=== PATIENT | female | born 1945 | race Caucasian/White ===

== ENCOUNTER 2023-01-17 14:52 | Outpatient (OUT) | payer MEDICARE, SELFPAY ==
--- NOTE | 2023-01-17 15:29 | MM_ITS ---
Patient: CHRISS BELL Exam Date: 01/17/2023 : 1945 Gender:F Ordering : DR Miguelina Whitfield M.D. Admission #: [id number] Family : Order #: [id number] CLICK HERE TO VIEW EXAM RADIOLOGY REPORT PROCEDURE: MM TOMOSYNTHESIS SCREENING BI COMPARISON: MG MAMM SCREEN 3D PARKER CAD, 11/22/2020. MG MAMM SCREEN 3D PARKER CAD, 01/15/2022. INDICATIONS: Screening mammogram Z12.31 Calculator Name NCI Breast Cancer Risk Assessment Tool 5 Year Breast Cancer Risk 1.30% Lifetime Breast Cancer Risk 2.60% Personal Breast Cancer No Personal Ovarian Cancer No Treatments None Family Cancers Daughter with thyroid cancer at age 22; Brother with colon cancer at age 60. LOCATION: [facility] BREAST COMPOSITION: Heterogeneously dense,which may obscure small masses. FINDINGS: DIAGNOSTIC CATEGORY 1--NEGATIVE. NO CHANGE FROM COMPARISON ASSESSMENT. Scattered benign-appearing calcifications are present. Scattered benign-appearing lymph nodes are present. RIGHT BREAST: No significant suspicious finding. LEFT BREAST: No significant suspicious finding. RECOMMENDATIONS: ROUTINE MAMMOGRAM AND CLINICAL EVALUATION IN 12 MONTHS. PLEASE NOTE: A NORMAL MAMMOGRAM DOES NOT EXCLUDE THE POSSIBILITY OF BREAST CANCER. A CLINICALLY SUSPICIOUS PALPABLE LUMP SHOULD BE BIOPSIED. Dictated by: Sd Hernandez MD on 01/18/2023 at 08:56 Approved by: Sd Hernandez MD on 01/18/2023 at 08:58
== END 2023-01-17 14:53 | disposition home or self-care (01) ==
LOC: MAMMO 14:58
PROVIDERS: PCP Family Medicine; Visit Provider Family Medicine
DX: Z12.31 Encounter for screening mammogram for malignant neoplasm of breast (principal); Z80.0 Family history of malignant neoplasm of digestive organs; Z80.8 Family history of malignant neoplasm of other organs or systems
CPT/HCPCS: 77063; 77067

== ENCOUNTER 2023-04-10 13:50 | Outpatient (OUT) | payer MEDICARE, SELFPAY ==
[2023-04-10 14:22] LABS: Anion Gap 15.1; BUN Creatinine Ratio 22.7; Calcium 8.8 mg/dL (8.5-10.1); Carbon Dioxide 26.6 mmol/L (21.0-32.0); Chloride 99 mmol/L (98-107); Estimated GFR (African America >60 (>=60); Estimated GFR (Non-African Ame >60 (>=60); Glucose 110 mg/dL (74-106); Potassium 3.7 mmol/L (3.5-5.1); Sodium 137 mmol/L (136-145)
[2023-04-10 14:40] LABS: Estimated Average Glucose 126 mg/dL
== END 2023-04-10 13:51 | disposition home or self-care (01) ==
LOC: LAB 13:51
PROVIDERS: PCP Family Medicine; Visit Provider Family Medicine
DX: R73.09 Other abnormal glucose (principal); E87.1 Hypo-osmolality and hyponatremia
CPT/HCPCS: 36415; 80048; 83036

== ENCOUNTER 2023-10-15 15:59 | Outpatient (OUT) | payer MEDICARE, SELFPAY ==
[2023-10-15 16:31] LABS: Basophils Absolute Auto 0.1 10^3/uL (0.0-0.1); Basophils Percent Auto 0.7 % (0.2-2.0); Eosinophils Absolute Auto 0.3 10^3/uL (0.0-0.7); Eosinophils Percent Auto 4.3 % (0.9-7.0); Hematocrit 36.3 % (36.0-48.0); Hemoglobin 12.1 g/dL (12.0-16.0); Immature Granulocytes Abs Auto 0.02 10^3/uL (0.00-0.03); Immature Granulocytes Pct Auto 0.3 % (0.0-0.5); Lymphocytes Absolute Auto 2.3 10^3/uL (1.2-3.8); Lymphocytes Percent Auto 33.6 % (20.5-60.0); Mean Corpuscular HGB Conc 33.3 g/dL (29.9-35.2); Mean Corpuscular Hemoglobin 29.9 pg (26.7-34.0); Mean Corpuscular Volume 89.6 fL (81.0-99.0); Mean Platelet Volume 10.6 fL (9.5-13.5); Monocytes Absolute Auto 0.7 10^3/uL (0.3-0.8); Monocytes Percent Auto 9.9 % (1.7-12.0); Neutrophils Absolute Auto 3.6 10^3/uL (1.4-6.5); Neutrophils Percent Auto 51.2 % (43.0-75.0); Platelet Count 272 10^3/uL (150-450); Red Blood Count 4.05 10^6/uL (4.20-5.40); Red Cell Distribution Width 13.6 % (11.0-15.0)
[2023-10-15 16:53] LABS: Estimated Average Glucose 131 mg/dL; Glycohemoglobin A1C 6.2 % (4.5-6.2)
[2023-10-15 17:30] LABS: Anion Gap 9.6; BUN Creatinine Ratio 17.1; Calcium 9.3 mg/dL (8.5-10.1); Chloride 95 mmol/L (98-107); Estimated GFR (African America >60 (>=60); Estimated GFR (Non-African Ame >60 (>=60); Glucose 84 mg/dL (74-106); Potassium 3.6 mmol/L (3.5-5.1); Sodium 130 mmol/L (136-145); TSH W/ REFLEX FT4 0.389 uIU/mL (0.358-3.740)
== END 2023-10-15 16:00 | disposition home or self-care (01) ==
LOC: LAB 16:00
PROVIDERS: PCP Family Medicine; Visit Provider Family Medicine
DX: R73.09 Other abnormal glucose (principal); I10 Essential (primary) hypertension; R53.83 Other fatigue; E55.9 Vitamin D deficiency, unspecified
CPT/HCPCS: 36415; 80048; 82306; 83036; 84443; 85025

== ENCOUNTER 2023-12-26 15:19 | Outpatient (OUT) | payer MEDICARE, SELFPAY ==
[2023-12-26 16:19] LABS: Anion Gap 12.3; BUN Creatinine Ratio 25.7; Calcium 9.5 mg/dL (8.5-10.1); Carbon Dioxide 27.6 mmol/L (21.0-32.0); Chloride 98 mmol/L (98-107); Estimated GFR (African America >60 (>=60); Estimated GFR (Non-African Ame >60 (>=60); Glucose 98 mg/dL (74-106); Potassium 3.9 mmol/L (3.5-5.1); Sodium 134 mmol/L (136-145)
== END 2023-12-26 15:20 | disposition home or self-care (01) ==
LOC: LAB 15:20
PROVIDERS: PCP Family Medicine; Visit Provider Family Medicine
DX: E87.1 Hypo-osmolality and hyponatremia (principal)
CPT/HCPCS: 36415; 80048

== ENCOUNTER 2024-01-21 13:43 | Outpatient (OUT) | payer MEDICARE, SELFPAY ==
--- NOTE | 2024-01-21 13:45 | MM_ITS ---
Patient Name: CHRISS BELL MR#: [id number] : 1945 Exam Date: 01/21/2024 Ordering Doctor: DR Miguelina Whitfield M.D. RADIOLOGY REPORT PROCEDURE: MM TOMOSYNTHESIS SCREENING BI COMPARISON: MM TOMOSYNTHESIS SCREENING BI, 01/17/2023. MG MAMM SCREEN 3D PARKER CAD, 01/15/2022. INDICATIONS: Screening Calculator Name NCI Breast Cancer Risk Assessment Tool 5 Year Breast Cancer Risk 1.30% Lifetime Breast Cancer Risk 2.40% Personal Breast Cancer No Personal Ovarian Cancer No Treatments None Family Cancers Daughter with thyroid cancer at age 22; Brother with colon cancer at age 60. LOCATION: [facility] BREAST COMPOSITION: The breasts are heterogeneously dense,which may obscure small masses. FINDINGS: DIAGNOSTIC CATEGORY 2--BENIGN FINDING. NO CHANGE FROM COMPARISON. Scattered benign-appearing nodules are present. Scattered benign-appearing calcifications are present. Scattered benign-appearing lymph nodes are present. RIGHT BREAST: No significant suspicious finding. LEFT BREAST: No significant suspicious finding. RECOMMENDATIONS: ROUTINE MAMMOGRAM AND CLINICAL EVALUATION IN 12 MONTHS. PLEASE NOTE: A NORMAL MAMMOGRAM DOES NOT EXCLUDE THE POSSIBILITY OF BREAST CANCER. A CLINICALLY SUSPICIOUS PALPABLE LUMP SHOULD BE BIOPSIED. Dictated by: Sd Hernandez MD on 01/21/2024 at 14:59 Approved by: Sd Hernandez MD on 01/21/2024 at 15:00
--- OUTSIDE RECORDS SUMMARY | 2024-01-21 14:01 | XMS_ITS | CCD ---
Author Organization [facility] Care Team Providers Care Rental Sales Representative Name Role Phone Diane Angelo MD Primary Care Provider [phone] DEMIAN CARDOZA Attending Unavailable DIAEN ANGELO Primary Care Unavailable Diane Angelo Unavailable Unavailable Unavailable DR DIANE ANGELO Primary Care Unavailable FAWASHOK, SHAIKH Willard Admitting Unavailable FASHAIKH Willard MORROW Attending Unavailable FAWSHAIKH Willard PULIDO Consulting Unavailable ANGELO, DR DIANE Akers Admitting Unavailable ANGELO, DR DIANE Akers Attending Unavailable ANGELO, DR DIANE Akers Primary Care Unavailable TEO, DR JOSÉ MIGUEL Mitchell Consulting Unavailable ANGELO, DR DIANE Akers Consulting Unavailable ANGELO, DR DIANE Akers Admitting Unavailable ANGELO, DR DIANE Akers Attending Unavailable ANGELO, DR DIANE Akers Consulting Unavailable ANGELO, DR DIANE Akers Primary Care Unavailable MURTAZA MILLER Consulting Unavailable ANGELO, DR DIANE Akers Admitting Unavailable ANGELO, DR DIANE Akers Primary Care Unavailable ZIJENNIFER, DR JOSÉ MIGUEL Mitchell Consulting Unavailable ANGELO, DR DIANE Akers Attending Unavailable ANGELO, DR DIANE Akers Consulting Unavailable BYRD, DR ALEXANDER Roldan Attending Unavailable BYRD, DR ALEXANDER Roldan Admitting Unavailable ANGELO, DR DIANE Akers Primary Care Unavailable REQUEST, DR CROWE LISTED Admitting Unavaila ble ANGELO, DR DIANE Akers Primary Care Unavailable REQUEST, DR CROWE LISTED Attending Unavaila ble REQUEST, DR CROWE LISTED Consulting Unavaila Diane Mcqueen Unavailable Grzegorz JEROME, Harjit Williamson Attending Unavailable Nahid JEROME, Diane Sterling Primary Care Millava ilTray Kay DO Attending Unavaila mya Angelo MD, Diane Sterling Primary Care Millava ilghulam Angelo MD, Diane Sterling Referring Unava ilBishnu Johnson MD Attending Unavailable Nahid JEROME, Diane Sterling Primary Care Unava ilable Allergies Allergy Classification Reported Allergen(s) Allergy Type Date of Onset Reaction(s) Facility Angiotensin Converting Enzyme (DANNY) Inhibitors (1 source) Lisinopril Drug Allergy 10-15-19 [facility] Dihydrofolate Reductase Inhibitors (antibiotic) (1 source) Trimethoprim Drug Allergy 10-15-19 [facility] Macrolides (antibiotic) (1 source) Azithromycin Drug Allergy 10-15-19 [facility] Sulfonamides (antibiotic) (2 sources) Sulfonamides (Antibiotic) Drug Allergy 10-15-19 Unknown Reaction, [facility] (1 source) Sulfonamides (Antibiotic) Propensity to adverse reactions to drug 03-13-20 [facility] (9 sources) Sulfonamides (Antibiotic); Translations: [Sulfa Drugs] Allergy to drug (finding) [facility] Repository (2 sources) Sulfonamides (Antibiotic) Drug allergy (disorder) 10-06-19 14 [facility] Repository (13 sources) Azithromycin; Translations: [azithromycin] Drug Allergy 12-26-19 Unknown, [facility] Repository (13 sources) Lisinopril; Translations: [lisinopril] Drug Allergy 12-26-19 Unknown, [facility] Repository (11 sources) Sulfamethoxazole / Trimethoprim Drug Allergy Unknown [facility] Other (11 sources) Substance with sulfonamide structure and antibacterial mechanism of action (substance) Drug allergy Unknown [facility] Other (8 sources) patient allergy list reviewed by nurse or physicia Propensity to adverse reactions 03-07-20 17 Comment:Done [facility] Other (8 sources) Allergies Reconciled Propensity to adverse reactions 03-15-20 21 Unknown [facility] Other (8 sources) Sulf-10 Drug allergy 10-05-19 15 Unknown [facility] Other (1 source) Sulfamethoxazole Drug Allergy 12-26-19 24 [facility] (1 source) Sulfonamides (Antibiotic) Allergy to substance 12-26-19 24 Unknown Reaction [facility] (1 source) Trimethoprim Drug Allergy 12-26-19 [facility] Medications Current Medications Medication Drug Class(es) Dates Sig (Normalized) Sig (Original) amLODIPine 5 mg oral tablet (7 sources) Dihydropyridine Calcium Channel Kim Start: 10-11-2023 End: 10-17-2023 take 1 tablet by mouth once daily Amlodipine Active 5 MG PO Daily October 17, 2023 4:27pm [employer] tablet Orally Once a day; Note: Source Status: Taking; Refills: 3; Provider: Nahid Akers Start: 05-22-2023 take 1 tablet by baldemar th every twenty-four hours amLODIPine Besylate 5 MG 1 tablet Orally Once a day for 30 day(s) Apr, Active omeprazole 40 mg delayed release oral capsule (14 sources) Proton Pump Inhibitor Start: 12-10-2023 Omeprazo le Active 0 .ROUTE .COMPLEX December 10, 2023 1:05pm TAKE 1 CAPSULE BY MOUTH EVERY DAY 30 MINUTES BEFORE MORNING MEAL Start: 10-11-2023 End: 12-10-2023 Omeprazole Discontinued 40 M G PO Daily October 11, 2023 12:00am December 10, 2023 1:05pm Free[employer]: TAKE 1 CAPSULE BY MOUTH DAILY 30 MINUTES BEFORE MORNING MEAL; Note: Source Status: Taking; Refills: 3; Qty: 30 Capsule; Provider: Arcenio Akers Omeprazole 40 MG TAKE 1 CAPSULE BY MOUTH DAILY 30 MINUTES BEFORE MORNING MEAL for 30 Active primidone 50 mg oral tablet (14 sources) Anti-epileptic Agent Start: 10-11-2023 take 1 tablet by mouth once daily Primidone Active 1 TAB PO Daily October 11, 2023 12:00am [employer]: TAKE 1 TABLET BY MOUTH EVERY DAY; Note: Source Status: Taking; Refills: 0; Qty: 90 Tablet; Provider: Nahid Mcintyre ( ) Start: 09-27-2021 take 1 tablet by baldemar th at bedtime Primidone 50 MG Oral Tablet TAKE 1 TABLET AT BEDTIME. Quantity: 0 Refills: 0 Ordered: 27-Sep-2021 DO Start : 27-Sep-2021 Active Completed/Discontinued Medications Medication Drug Class(es) Dates Sig (Normalized) Sig (Original) amoxicillin 500 mg oral capsule (2 sources) Penicillin-class Antibacterial Start: 11-21-2020 Amoxicillin 500 MG Oral Capsule Quantity: 25 Refills: 0 Ordered: 20-Dec-2020 DO Start : 21-Nov-2020 Complete apixaban 5 mg oral tablet (2 sources) Factor Xa Inhibitor Start: 09-15-2021 take 1 tablet by mouth twice daily Eliquis 5 MG Oral Tablet Take one tablet twice daily Quantity: 180 Refills: 3 Ordered: 23-Oct-2021 DO Start : 15-Sep-2021 Active aspirin 81 mg delayed release oral tablet (1 source) Platelet Aggregation Inhibitor, Nonsteroidal Anti-inflammatory Drug Start: 11-06-2021 take 1 tablet by mouth two times weekly Aspirin EC Adult Low Strength 81 MG Oral Tablet Delayed Release 1 tablet twice weekly Quantity: 24 Refills: 3 Ordered: 06-Nov-2021 Tammy Celis MD Start : 06-Nov-2021 Active resume atenolol 50 mg oral tablet (2 sources) beta-Adrenergic Kim Start: 05-30-2017 End: 10-17-2023 take 50 mg by mouth once daily Atenolol Discontinued 50 MG PO Daily May 30, 2017 1:00am October 17, 2023 4:27pm atorvastatin 10 mg oral tablet (2 sources) HMG-CoA Reductase Inhibitor Start: 11-06-2021 take 1 tablet by mouth at bedtime Atorvastatin Calcium 10 MG Oral Tablet TAKE 1 TABLET AT BEDTIME. Quantity: 90 Refills: 3 Ordered: 06-Nov-2021 Tammy Celis MD Start : 06-Nov-2021 Active new start/ to be filled by PCP after this rx. Centrum Silver Ultra Womens Oral Tablet (1 source) take 1 tablet by mouth once daily Centrum Silver Ultra Womens Oral Tablet TAKE 1 TABLET DAILY. Quantity: 0 Refills: 0 Ordered: 06-Nov-2021 DO Active chlorhexidine gluconate 1.2 mg/ml mouthwash (2 sources) Start: 11-21-2020 Chlorhexidine Gluconate 0.12 % Mouth/Throat Solution Quantity: 473 Refills: 0 Ordered: 20-Dec-2020 DO Start : 21-Nov-2020 Complete losartan potassium 25 mg oral tablet (4 sources) Angiotensin 2 Receptor Kim Start: 05-30-2017 End: 10-17-2023 take 25 mg by mouth once daily Losartan Discontinued 25 MG PO Daily May 30, 2017 1:00am October 17, 2023 4:28pm Start: 05-30-2017 End: 05-30-2017 take 50 mg by mouth twice daily Losartan Discontinued 50 MG PO Twice daily May 30, 2017 1:00am May 30, 2017 11:58pm Turmeric extract (8 sources) Turmeric CAPS TA KE 1 CAPSULE Daily Quantity: 0 Refills: 0 Ordered: 28-Mar-2021 DO Active Problems Active Problems Problem Classification Problem Date Documented Da te Episodic/Chronic Abdominal pain (18 sources) Generalized abdominal pain; Translations: [Generalized abdominal pain] 05-08-2023 Episodic Adjustment disorders (8 sources) Adjustment disorder with depressed mood; Translations: [Adjustment disorder with depressed mood] Chronic Anxiety disorders (8 sources) Mixed anxiety and depressive disorder; Translations: [Anxiety state, unspecified] Chronic Diabetes mellitus without complication (7 sources) Other abnormal glucose; Translations: [Increased glucose level] Episodic Disorders of teeth and jaw (8 sources) Periapical abscess without sinus tract; Translations: [Periapical abscess without sinus] Episodic Esophageal disorders (11 sources) Gastroesophageal reflux disease without esophagitis; Translations: [Gastro-esophageal reflux disease without esophagitis] Chronic Essential hypertension (17 sources) Benign essential hypertension; Translations: [Essential hypertension, benign] Onset: 6 Chronic Fluid and electrolyte disorders (20 sources) Hyponatremia; Translations: [Hypo-osmolality and hyponatremia] Episodic Genitourinary symptoms and ill-defined conditions (8 sources) Dysuria; Translations: [Dysuria] Episodic Glaucoma (19 sources) 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; Translations: [Open angle with borderline findings, low risk, unspecified eye] Onset: 7 Chronic Heart valve disorders (9 sources) Tricuspid incompetence, non-rheumatic ; Translations: [Tricuspid valve disorders, specified as nonrheumatic] Onset: Chronic Malaise and fatigue (14 sources) Fatigue; Translations: [Other fatigue] 10-15-2023 Episodic Nutritional deficiencies (4 sources) Vitamin D deficiency; Translations: [Vitamin D deficiency, unspecified] 10-15-2023 Chronic Occlusion or stenosis of precerebral arteries (15 sources) Left carotid artery stenosis; Translations: [Occlusion and stenosis of carotid artery without mention of cerebral infarction] Chronic Osteoarthritis (8 sources) Osteoarthritis; Translations: [Polyosteoarthritis, unspecified] Onset: 5 Chronic Osteoporosis (8 sources) Primary osteoporosis; Translations: [Age-related osteoporosis without current pathological fracture] Onset: 6 Chronic Other and ill-defined heart disease (1 source) Other ill-defined heart diseases; Translations: [OTHER ILL-DEFINED HEART DISEASES] Onset: 1 Chronic Other and unspecified benign neoplasm (11 sources) History of polyp of colon; Translations: [History of colon polyps] Episodic Other circulatory disease (7 sources) Elevated blood-pressure reading without diagnosis of hypertension; Translations: [Elevated blood-pressure reading, without diagnosis of hypertension] Episodic Other circulatory disease (1 source) Elevated blood-pressure reading, without diagnosis of hypertension; Translations: [Elevated blood-pressure reading, without diagnosis of hypertension] Episodic Other circulatory disease (2 sources) Abnormal foot pulse; Translations: [Other specified symptoms and signs involving the circulatory and respiratory systems] 08-07-2023 Episodic Other circulatory disease (1 source) Other specified symptoms and signs involving the circulatory and respiratory systems; Translations: [Other symptoms involving cardiovascular system] 08-06-2023 Episodic Other ear and sense organ disorders (11 sources) Impacted cerumen of bilateral ears; Translations: [Impacted cerumen, bilateral] Episodic Other ear and sense organ disorders (20 sources) Impacted cerumen; Translations: [Impacted cerumen, left ear] Onset: 6 Episodic Other ear and sense organ disorders (1 source) Impacted cerumen, left ear; Translations: [Impacted cerumen, left ear] Episodic Other ear and sense organ disorders (2 sources) Impacted cerumen, bilateral; Translations: [Impacted cerumen, bilateral] Episodic Other hereditary and degenerative nervous system conditions (20 sources) Essential tremor; Translations: [Essential and other specified forms of tremor] Chronic Other hereditary and degenerative nervous system conditions (1 source) Essential tremor; Translations: [Essential tremor] Chronic Other injuries and conditions due to external causes (8 sources) History of fall; Translations: [History of falling] Episodic Other skin disorders (12 sources) Localized swelling, mass and lump, right lower limb; Translations: [LOC SWELL MASS LUMP RT LOWER LIMB] Onset: 2 Episodic Other skin disorders (11 sources) Seborrheic keratosis; Translations: [Other seborrheic keratosis] Episodic Other skin disorders (2 sources) Excessive sweating; Translations: [Generalized hyperhidrosis] 05-08-2023 Episodic Phlebitis; thrombophlebitis and thromboembolism (20 sources) Deep venous thrombosis; Translations: [Acute venous embolism and thrombosis of unspecified deep vessels of lower extremity] Onset: 2 Episodic Pulmonary heart disease (6 sources) Pulmonary hypertension; Translations: [Other chronic pulmonary heart diseases] Chronic Residual codes; unclassified (8 sources) Body mass index 20-24 - normal; Translations: [Body Mass Index between 19-24, adult] Episodic Residual codes; unclassified (1 source) Family history of malignant neoplasm of other organs or systems; Translations: [FAM HX MALIG NEOPLASM OTH ORGN/SYS] Onset: 2 Episodic Residual codes; unclassified (8 sources) Procedure not done; Translations: [Procedure and treatment not carried out because of patient's decision for unspecified reasons] Episodic Residual codes; unclassified (8 sources) Immunization refused ; Translations: [Immunization not carried out because of patient refusal] Episodic Spondylosis; intervertebral disc disorders; other back problems (3 sources) Lumbosacral spondylosis without myelopathy; Translations: [Spondylosis without myelopathy or radiculopathy, lumbosacral region] Chronic Syncope (20 sources) Vasovagal syncope; Translations: [Syncope and collapse] Onset: 1 Episodic Urinary tract infections (10 sources) Urinary tract infectious disease; Translations: [Urinary tract infection, site not specified] Onset: 8 05-08-2023 Episodic Past or Other Problems Problem Classification Problem Date Documented Da te Episodic/Chronic Essential hypertension (1 source) Essential hypertension; Translations: [Essential hypertension, benign] Onset: 6 Nonspecific chest pain (15 sources) Chest pain; Translations: [Chest pain, unspecified] Onset: 5 Episodic Other connective tissue disease (7 sources) Pain in limb; Translations: [Pain in right lower leg] Onset: 7 Episodic Other connective tissue disease (1 source) Pain in right lower leg; Translations: [Pain in right lower leg] Onset: 7 Episodic Other gastrointestinal disorders (8 sources) Constipation; Translations: [Other constipation] Onset: 7 Episodic Other non-traumatic joint disorders (7 sources) Arthralgia of the pelvic region and thigh; Translations: [Pain in joint, pelvic region and thigh] Onset: 5 Episodic Other screening for suspected conditions (not mental disorders or infectious disease) (13 sources) Encounter for screening mammogram for malignant neoplasm of breast; Translations: [Mammography abnormal] Onset: 5 Episodic Other skin disorders (8 sources) Other seborrheic keratosis; Translations: [Seborrheic keratosis] Onset: 6 Episodic Residual codes; unclassified (2 sources) Family history of malignant neoplasm of digestive organs; Translations: [FAM HX MALIG NEOPLASM DIGESTIV ORGN] Onset: 4 Episodic Residual codes; unclassified (7 sources) Family history of malignant neoplasm of gastrointestinal tract; Translations: [Family history of malignant neoplasm of digestive organs] Onset: 4 Episodic Residual codes; unclassified (7 sources) Family history of diabetes mellitus; Translations: [Family history of diabetes mellitus] Onset: 4 Episodic Residual codes; unclassified (1 source) Family history of diabetes mellitus; Translations: [Family history of diabetes mellitus] Onset: 4 Episodic Unclassified (8 sources) Never smoked tobacco; Translations: [Never a smoker] Unclassified (11 sources) FOLLOW-UP SURGERY NEC; Translations: [FOLLOW-UP SURGERY NEC] Unclassified (1 source) Chest pain, Other; Translations: [Chest pain, Other] Onset: 8 Unclassified (1 source) Pain in joint, pelvic region and thigh; Translations: [Pain in joint, pelvic region and thigh] Onset: 5 Viral infection (8 sources) Herpes zoster without complication; Translations: [Zoster without complications] Onset: 5 Episodic Results Test Name Value Interpretation Reference Range Facility Basophils Auto (Bld) [#/Vol] on 10-15-2023 Basophils (Bld) [#/Vol] 0.1 10 3/uL 0.0-0.1 [facility] Basophils/100 WBC Auto (Bld) on 10-15-2023 Basophils/100 WBC (Bld) 0.7 % 0.2-2.0 [facility] Eosinophils/100 WBC Auto (Bl d)on 10-15-2023 Eosinophils/100 WBC (Bld) 4.3 % 0.9-7.0 [facility] Erythrocyte distribution wid th Auto (RBC) [Ratio]on 10-15-2023 Erythrocyte distribution width (RBC) [Ratio] 13.6 % 11.0-15.0 [facility] Estimated glomerular filtrat ion rate (GFR) non- Americanon 10-15-2023 GFR/1.73 sq M.predicted among non-blacks MDRD (S/P/Bld) [Vol rate/Area] mL/min/{1.73_m2} >=60 [facility] Glucose mean value [Mass/vol ume] in Blood Estimated from glycated hemoglobinon 10-15-2023 Average glucose Estimated from glycated hemoglobin (Bld) [Mass/Vol] 131 mg/dL [facility] Hematocrit Auto (Bld) [Volum e fraction]on 10-15-2023 Hematocrit (Bld) [Volume fraction] 36.3 % 36.0-48.0 [facility] Hemoglobin [Mass/volume] in Bloodon 10-15-2023 Hemoglobin (Bld) [Mass/Vol] 12.1 g/dL 12.0-16.0 [facility] Laboratory - Chemistry and C hemistry - challengeon 10-15-2023 Calcium [Mass/Vol] 9.3 mg/dL 8.5-10.1 [facility] Chloride [Moles/Vol] 95 mmol/L Low 98-[address] [facility] CO2 [Moles/Vol] 29.0 mmol/L 21.0-32.0 [facility] Creatinine [Mass/Vol] 0.76 mg/dL 0.55-1.02 [facility] GFR/1.73 sq M.predicted MDRD (S/P/Bld) [Vol rate/Area] mL/min/{1.73_m2} >=60 [facility] Glucose [Mass/Vol] 84 mg/dL 74-106 [facility] Potassium [Moles/Vol] 3.6 mmol/L 3.5-5.1 [facility] Sodium [Moles/Vol] 130 mmol/L Low 136-145 [facility] TSH Qn 0.389 m[IU]/L 0.358-3.740 [facility] Urea nitrogen [Mass/Vol] 13.0 mg/dL 7.0-18.0 [facility] Urea nitrogen/Creatinine [Mass ratio] 17.1 mg/mg [facility] Laboratory - Hematology and Cell countson 10-15-2023 HbA1c (Bld) [Mass fraction] 6.2 % 4.5-6.2 [facility] Comment on above: ADA RECOMMENDED LIMI T 4.0 - 6.0ADA THERAPEUTIC TARGET < 7.0ACTION SUGGESTED> 7.0 Immature granulocytes/100 WBC (Bld) 0.3 % 0.0-0.5 [facility] Leukocytes [#/volume] correc kenn for nucleated erythrocytes in Blood by Automated counon 10-15-2023 WBC corrected for nucl RBC Auto (Bld) [#/Vol] 7.0 10 3/uL 4.0-11.0 [facility] Lymphocytes Auto (Bld) [#/Vo l]on 10-15-2023 Lymphocytes (Bld) [#/Vol] 2.3 10 3/uL 1.2-3.8 [facility] Lymphocytes/100 WBC Auto (Bl d)on 10-15-2023 Lymphocytes/100 WBC (Bld) 33.6 % 20.5-60.0 [facility] MCH Auto (RBC) [Entitic mass ]on 10-15-2023 MCH (RBC) [Entitic mass] 29.9 pg 26.7-34.0 [facility] MCHC Auto (RBC) [Mass/Vol]on 10-15-2023 MCHC (RBC) [Mass/Vol] 33.3 g/dL 29.9-35.2 [facility] MCV Auto (RBC) [Entitic vol] on 10-15-2023 MCV (RBC) [Entitic vol] 89.6 fL 81.0-99.0 [facility] Monocytes Auto (Bld) [#/Vol] on 10-15-2023 Monocytes (Bld) [#/Vol] 0.7 10 3/uL 0.3-0.8 [facility] Monocytes/100 WBC Auto (Bld) on 10-15-2023 Monocytes/100 WBC (Bld) 9.9 % 1.7-12.0 [facility] Neutrophils Auto (Bld) [#/Vo l]on 10-15-2023 Neutrophils (Bld) [#/Vol] 3.6 10 3/uL 1.4-6.5 [facility] Neutrophils/100 WBC Auto (Bl d)on 10-15-2023 Neutrophils/100 WBC (Bld) 51.2 % 43.0-75.0 [facility] No Panel Informationon 10-14 25-Hydroxy Vitamin D Total 31.8 ng/mL [facility] Comment on above: <20 ng/mL Vit D defi cient20-<30 ng/mL Vit D [id number] ng/mL Vit D sufficient>100 ng/mL Potential Toxicity Eosinophils # (Auto) 0.3 10 3/uL 0.0-0.7 [facility] Immature Granulocyte # (Auto) 0.02 10 3/uL 0.00-0.03 [facility] Platelet mean volume Auto (B ld) [Entitic vol]on 10-15-2023 Platelet mean volume (Bld) [Entitic vol] 10.6 fL 9.5-13.5 [facility] Platelets Auto (Bld) [#/Vol] on 10-15-2023 Platelets (Bld) [#/Vol] 272 10 3/uL 150-450 [facility] RBC Auto (Bld) [#/Vol]on RBC (Bld) [#/Vol] 4.05 10 6/uL Low 4.20-5.40 [facility] Serum or plasma anion gap de terminationon 10-15-2023 Anion gap [Moles/Vol] 9.6 mmol/L [facility] Provider Letteron 08-16-2023 Provider Letter [facility] [place] [address] [place], [place] [address] Diane Angelo MD [address], [place] [address] Re: Ingrid Luna : 1945 Date of Visit: 08/14/2023 Dear Diane Angelo MD Thank you for your referral, your patient was seen at our office by Dr. Cohen. Attached is Dr. Cohen's office note where you will find his assessment and recommendations. Let me know if you have any questions or concerns. Sincerely, Noni Panda, [employer] Worker Solomon Carbajal Providers: The following document(s) were included in the letter: August 14, 2023 10:35:55 EDT - (08/14/2023) Rheumatology Office Visit Note Normal [facility] Rheumatology Office/Clinic N oteon 08-14-2023 Rheumatology Office/Clinic Note Chief Complaint New patient, referred for lumbar and sacral OA History of Present Illness Patient is here for evaluation and management of joint pain. She states that she has been having joint pain for approximately numerous years. The joints involved include thoracic back. The pain is usually worse with activity. She does not have persistent joint swelling. She rates the joint pain as mild. She has taken OTC analgesics such as ibuprofen with some benefit. Physical Exam Vitals & Measurements HR: 66 (Peripheral) BP: 140/87 HT: 163 cm WT: 65.6 kg WT: 65.6 kg (Dosing) BMI: 24.69 Additional Vitals BP Position/Location: Sitting, Right arm Physical exam General: Alert and oriented, well nourished, no acute distress. Eye: PERRL, EOMI, normal conjunctiva. HENT: Normocephalic, atraumatic, no conjunctival injection Lungs: Normal respiratory rate, no use of accessory muscles, no audible wheezing Musculoskeletal: no synovitis, joint effusions, deformities Skin: Skin is warm, dry and pink, no rashes or lesions. Neurologic: Awake, alert, and oriented X3 Psychiatric: Cooperative, appropriate mood and affect. Assessment/Plan 1. Osteoarthritis of multiple joints Diagnosis made by clinical history and physical examination. The patient does not exhibit signs or symptoms consistent with inflammatory arthritis. Physical examination does not show any synovitis, joint effusion, joint deformities, tenosynovitis. We discussed the treatment options for osteoarthritis which include [id number] analgesics such as Tylenol and NSAIDs. Topical Voltaren and capsaicin could be utilized as tolerated. If pain worsens, we can also consider corticosteroid injection for short-term use. We discussed that there is no disease modifying treatment for osteoarthritis and that treatment regimen should focus on maintaining function, as well as safe optimization of pain relief. 2. Back pain topical treatment such as voltaren, lidocaine Medical Decision Making Chronic conditions NOT treated during this visit that affected my overall medical decision making: [] Treatment plans discussed but not opted for at this time: [] Prescribed medication that requires intensive monitoring for toxicity: [] I have reviewed the patient?s medication list for medication interactions/contrain dications and/or for upcoming procedures: [yes or no] Time Spent with the Patient I have personally spent [] minutes on this date, directly related to today's patient visit, including pre and post visit work, for this date of service. Time listed does not include time spent on separately billable services. Provider Comments f/u PRN Problem List/Past Medical History Ongoing DVT - Deep vein thrombosis of lower limb Essential tremor GERD - Gastro-esophageal reflux disease Hyponatremia Osteoarthritis of spine Syncope Historical No qualifying data Procedure/Surgical History Tubal ligation 1973 Colonoscopy and polyp removal (05/27/2004) Medications amLODIPine 5 mg oral tablet, 5 mg= 1 tabs, Oral, Daily latanoprost 0.005% ophthalmic solution, 1 drops, Eye-Both, HS (at bedtime) omeprazole 40 mg oral delayed release capsule, 40 mg= 1 caps, Oral, Daily primidone 50 mg oral tablet, 25 mg= 0.5 tabs, Oral, qAM timolol maleate 0.25% ophthalmic solution, 1 drops, Eye-Both, BID Allergies sulfa drugs (Altered mental status) azithromycin (Unknown) lisinopril (Unknown) Social History Tobacco Never (less than 100 in lifetime) Use:. Family History Diabetes mellitus: Mother. Heart disease: Father. Health Status Family Member(s) Electronically signed by Bishnu Cohen MD 08/14/23 11:10 EDT Normal [facility] Provider Letteron 06-19-2023 Provider Letter [facility] [place] [address] [address] [facility], [place] [address] Re: Ingrid Luna : 1945 Date of Visit: 08/14/2023 Dear Diane Angelo MD Thank you for referring your patient, they have been scheduled with Dr. Cohen on August 14, 2023 at 10:20am. We will send correspondence following this appointment. Let me know if you have any questions or concerns. Sincerely, Noni Panda, [employer] Worker Solomon Carbajal Providers: Normal [facility] C Urineon 10-14-2022 C Urine Order added by Discern rule. ---- Final >100,000 cfu/ml Escherichia coli isolated ORGANISM EC ---- SUSCEPTIBILITY --- ORGANISM ID: 1 ANTIBIOTIC INTERPRETATION TANI STATUS POS Escherichia coli Amikacin S <=2 V Ampicillin S <=2 V Ampicillin/Sulbactam S <=2 V Cefazolin S <=4 V Ciprofloxacin S <=0.25 V Ceftriaxone S <=1 V Nitrofurantoin S <=16 V Cefepime S <=1 V Cefoxitin S <=4 V Gentamicin S <=1 V Meropenem S <=0.25 V Levofloxacin S <=0.12 V Tobramycin S <=1 V Piperacillin/Tazobact am S <=4 V Trimethoprim/Sulfa S <=20 V Ceftazidime S <=1 V [facility] Comment on above: Performed By: #### U #### [facility] (DEFAULT) [address] [place] [address] [facility] [address] [place] [address] ED Clinical Summaryon 2022 ED Clinical Summary [facility] [address] [place] [address] ED Clinical Summary Person Information Name: Ingrid Luna [place] Age: 77 Years : 1945 Sex: Female PCP: Nahid JEROME, Diane Sterling Marital Status: Phone: Race: White Ethnicity: Not or Language: Norwegian Visit Reason: Weakness; Medical problem Acuity: 3 Enc Type: Emergency Med Service: Emergency Medicine Arrival: 10/12/2022 14:27:37 Discharge: 10/12/2022 22:53:00 LOS: 000 08:26 Checkin: 10/12/2022 14:27:37 Checkout: 10/12/2022 22:53:00 Dispo Type: Home or Self Care Address: [address] [place] [address] Provider Notes: Diagnosis: 1:Hyponatremia; 2:Cerebral microvasculopathy Problems No Problems Documented Smoking Status: Smoking Status Never (less than 100 in lifetime) Functional Status: Sensory Deficits: History of Falls: Mobility Assistance Prior to Admission: ADLs: Current Level of Assistance for Self-Care/Mobility: Cognitive Status: Allergies sulfa drugs (Altered mental status) Laboratory or Other Results This Visit (last charted value for your 10/12/2022 visit) Hematology 10/12/2022 2:53 PM WBC: 7.0 x10 RBC: 4.32 x10 Neutro Auto: 62.5 % -- Normal range between ( 47.2 and 70.8 ) Lymph Auto: 26.1 % -- Normal range between ( 27.2 and 40.8 ) Treasure Auto: 6.9 % -- Normal range between ( 3.7 and 11.9 ) Eos Auto: 3.7 % -- Normal range between ( 0.0 and 5.4 ) Basophil Auto: 0.8 % -- Normal range between ( 0.0 and 1.5 ) Baso Absolute: 0.1 x10 MCV: 88.7 fL -- Normal range between ( 80.0 and 100.0 ) MCHC: 33.7 % -- Normal range between ( 31.0 and 37.0 ) Lymph Absolute: 1.8 x10 Hct: 38.4 % -- Normal range between ( 36.0 and 46.0 ) Treasure Absolute: 0.5 x10 MCH: 29.9 pg -- Normal range between ( 27.0 and 35.0 ) Neutro Absolute: 4.4 x10 Hgb: 12.9 g/dL -- Normal range between ( 12.0 and 16.0 ) Mean Platelet Volume: 9.1 fL -- Normal range between ( 6.7 and 10.6 ) Platelet: 276 x10 Eos Absolute: 0.3 x10 RDW: 13.8 % -- Normal range between ( 11.6 and 14.8 ) Coagulation 10/12/2022 2:53 PM PT: 10.6 seconds -- Normal range between ( 9.3 and 11.9 ) INR: 1.0 ratio PTT: 22.0 seconds -- Normal range between ( 20.6 and 29.2 ) Urinalysis 10/12/2022 3:44 PM UA Color: Light-Yellow UA Urobilinogen: Normal mg/dL UA Bili: Negative UA Ketones: Negative mg/dL UA Leukocyte Esterase: 500 UA Nitrite: 2+ UA Glucose: Normal mg/dL UA Bacteria: Present /HPF UA Protein: 30 mg/dL UA Blood: Negative UA Spec Grav: 1.017 -- Normal range between ( 1.003 and 1.035 ) UA pH: 6.5 UA Clarity: Turbid UA Source: Clean Catch UA Mucus: Present /LPF UA Hyline Cast Qual: 6-10 /LPF UA WBC Quant: 31 /HPF -- Normal range between ( 0 and 5 ) UA RBC Quant: 0 /HPF -- Normal range between ( 0 and 5 ) UA Squepi Cells Quant: <1 /HPF -- Normal range between ( 0 and 29 ) Chemistry 10/12/2022 7:04 PM 2 Hour Troponin: <0.03 ng/mL -- Normal range between ( 0.00 and 0.03 ) 2 Hour Myoglobin: 34.7 ng/mL -- Normal range between ( 14.3 and 65.8 ) 10/12/2022 2:53 PM Creatinine Lvl: 0.83 mg/dL -- Normal range between ( 0.44 and 1.03 ) BUN: 14 mg/dL -- Normal range between ( 8 and 26 ) Glucose Lvl: 176 mg/dL -- Normal range between ( 70 and 99 ) Potassium Lvl: 4.0 mmol/L -- Normal range between ( 3.4 and 4.8 ) AST: 23 IU/L -- Normal range between ( 15 and 41 ) ALT: 17 IU/L -- Normal range between ( 14 and 54 ) Sodium Lvl: 126 mmol/L -- Normal range between ( 133 and 142 ) Calcium Lvl: 9.5 mg/dL -- Normal range between ( 8.5 and 10.3 ) Albumin Lvl: 3.9 g/dL -- Normal range between ( 3.2 and 4.9 ) Total Protein: 7.4 g/dL -- Normal range between ( 6.5 and 8.1 ) Bili Total: 0.7 mg/dL -- Normal range between ( 0.3 and 1.2 ) Alk Phos: 61 IU/L -- Normal range between ( 32 and 91 ) Chloride: 94 mmol/L -- Normal range between ( 98 and 110 ) CO2: 24 mmol/L -- Normal range between ( 22 and 32 ) Anion Gap: 12 -- Normal range between ( 7 and 17 ) Estimated GFR: >60 mL/min/1.73m? BNP: 77 pg/mL -- Normal range between ( 0 and 100 ) BUN Crea Ratio: 16.9 -- Normal range between ( 10.0 and 20.0 ) AG Ratio: 1.1 -- Normal range between ( 1.1 and 2.2 ) Initial Troponin: <0.03 ng/mL -- Normal range between ( 0.00 and 0.03 ) Initial Myoglobin: 29.4 ng/mL -- Normal range between ( 14.3 and 65.8 ) Computed Tomography 10/12/2022 5:[address] Brain w/o Contrast: CT Brain w/o Contrast Diagnostic Radiology 10/12/2022 5:46 PM XR Chest 1 View: XR Chest 1 View Magnetic Resonance Imaging 10/12/2022 8:23 PM MRI Brain and MRA Head w/o Contrast: MRI Brain and MRA Head w/o Contrast Measurements: Height: Weight: Blood Pressure: /91 mmHg BMI: Procedures No Procedures Documented Immunizations No Immunizations Documented This Visit Final Med List: New Medications [facility] 016 (more content not included)... Normal [facility] MRI Brain + MRA Head w/o Con traston 10-13-2022 MRI Brain + MRA Head w/o Contrast EXAM: MRI Brain + MRA Head w/o Contrast HISTORY: Dizziness, Abnormal CT.Vertigo. Low sodium. COMPARISON: None. TECHNIQUE: Multiplanar multisequence MRI of the brain without intravenous contrast. 3-D [id number] MRA with MIP reformatted images FINDINGS: MRI: There is extensive patchy cerebral white matter T2 prolongation, becoming confluent in the regions of the trigones. There is no mass effect, shift, hemorrhage, extra-axial collection or restricted diffusion. There is a small cavum septum pellucidum. Orbits and contents, sinuses, nasopharynx, pituitary and midline structures, temporal bones and contents, craniocervical junction, skull and scalp are within normal limits. MRA: The distal portions of the internal carotid arteries, the A1 and A2 segments and the M1, M2 and middle cerebral trifurcation branches are within normal limits, without evidence of irregularity, focal stenosis, occlusion or aneurysm. The anterior communicating artery and both right and left posterior communicating arteries are patent. The distal vertebral arteries, the basilar artery, the superior cerebellar arteries and the posterior cerebral arteries and branches are within normal limits, without evidence of irregularity, focal stenosis, occlusion or aneurysm. IMPRESSION: Extensive patchy cerebral white matter T2 prolongation becoming confluent in the peritrigonal regions is at the upper limits of expected for normal aging white matter change. There is no mass effect, shift, hemorrhage or extra-axial collection. There is no restricted diffusion to suggest recent cerebral ischemia or encephalomalacia to suggest old ischemia. Cerebral arterial vasculature is within normal limits. There is no evidence of irregularity, stenosis, branch occlusion or aneurysm. Final Dictated by: Mehrdad Haney MD Dictated DT/TM: 10/12/2022 9:53 pm Signed by: Mehrdad Haney MD Signed (Electronic Signature): 10/12/2022 10:22 pm (If Report Is Signed, Electronically Signed in Other Vendor System) Normal [facility] .UA Microscp Aon 10-12-2022 UA Bacteria Present Abnormal Absent [facility] Comment on above: Performed By: #### . Urinalysis Microscopic Auto #### [place] [address] UA Hyline Cast Qual 6-10 Abnormal Negative [facility] Comment on above: Performed By: #### . Urinalysis Microscopic Auto #### [address] [address] UA Mucus Present Abnormal Absent [facility] Comment on above: Performed By: #### . Urinalysis Microscopic Auto #### [place] [address] UA RBC Quant 0 /HPF Normal 0-5 [facility] Comment on above: Performed By: #### . Urinalysis Microscopic Auto #### [place] [address] UA Squepi Cells Quant <1 Normal 0-29 [facility] Comment on above: Performed By: #### . Urinalysis Microscopic Auto #### [place] [address] UA WBC Quant 31 /HPF High 0-5 [facility] Comment on above: Performed By: #### . Urinalysis Microscopic Auto #### [place] [address] .eGFRon 10-12-2022 GFR/1.73 sq M.predicted MDRD (S/P/Bld) [Vol rate/Area] mL/min/{1.73_m2} Normal >=60 [facility] Comment on above: Result Comment: [facility] have implemented the eGFR calculation approach that does not have a coefficient for race and that conforms to the NKF-ASN Task Force Recommendations. Stages of Chronic Kidney Disease GFR Stage 3a Mild to moderate loss of kidney function 59 to 45 Stage 3b Moderate to severe loss of kidney function 44 to 33 Stage 4 Severe loss of kidney function 29 to 15 Stage 5 Kidney failure Less than 15 GFR calculated using the CKD-Epi Creatinine Equation (2020): eGFR = 142 X min(SCr/?, 1)? X max(SCr /?, 1)-1.200 X 0.9938Age X 1.012 [if female] Abbreviations/Units: eGFR (estimated glomerular filtration rate) = mL/min/1.73 m2 SCr (standardized serum creatinine) = mg/dL ? = 0.7 (females) or 0.9 (males) ? = -0.241 (females) or -0.302 (males) min = indicates the minimum of SCr/? or 1 max = indicates the maximum of SCr/? or 1 Age = years Performed By: #### E GFR #### [address] [address] AMI 2Hron 10-12-2022 2 Hour Myoglobin 34.7 ng/mL Normal 14.3-65.8 [place] Comment on above: Performed By: #### A MI2 #### [address] [id number] 2 Hour Troponin <0.03 Normal 0.00-0.03 [facility] Comment on above: Result Comment: An i ncreased Troponin-I value, in the absence of myocardial ischemia, may indicate other etiologies of cardiac damage. Performed By: #### A MI2 #### [address] [address] AMI Initon 10-12-2022 Initial Myoglobin 29.4 ng/mL Normal 14.3-65.8 [facility] Comment on above: Performed By: #### A MI2 #### [place] [id number] Initial Troponin <0.03 Normal 0.00-0.03 [place] Comment on above: Result Comment: An i ncreased Troponin-I value, in the absence of myocardial ischemia, may indicate other etiologies of cardiac damage. Performed By: #### A MI2 #### [place] [id number] BNPon 10-12-2022 Natriuretic peptide B (Bld) [Mass/Vol] 77 pg/mL Normal 0-100 [facility] Comment on above: Performed By: #### A MI2 #### [address] [address] CBC w/ Diffon 10-12-2022 Erythrocyte distribution width (RBC) [Ratio] 13.8 % Normal 11.6-14.8 [facility] Comment on above: Performed By: #### A MI2 #### [address] [address] Hematocrit (Bld) [Volume fraction] 38.4 % Normal 36.0-46.0 [facility] Comment on above: Performed By: #### A MI2 #### [address] [address] Hemoglobin (Bld) [Mass/Vol] 12.9 g/dL Normal 12.0-16.0 [facility] Comment on above: Performed By: #### A MI2 #### [address] [address] MCH (RBC) [Entitic mass] 29.9 pg Normal 27.0-35.0 [facility] Comment on above: Performed By: #### A MI2 #### [address] [address] MCHC 33.7 % Normal 31.0-37.0 [facility] Comment on above: Performed By: #### A MI2 #### [address] [address] MCV (RBC) [Entitic vol] 88.7 fL Normal 80.0-100.0 [facility] Comment on above: Performed By: #### A MI2 #### [address] [address] Platelet 276 x10*3/mcL Normal 150-350 [facility] Comment on above: Performed By: #### A MI2 #### [address] [address] Platelet mean volume (Bld) [Entitic vol] 9.1 fL Normal 6.7-10.6 [facility] Comment on above: Performed By: #### A MI2 #### [address] [address] RBC 4.32 x10*6/mcL Normal 3.80-5.20 [facility] Comment on above: Performed By: #### A MI2 #### [address] [address] WBC 7.0 x10*3/mcL Normal 4.5-11.0 [facility] Comment on above: Performed By: #### A MI2 #### [address] [address] CMPon 10-12-2022 Albumin [Mass/Vol] 3.9 g/dL Normal 3.2-4.9 [facility] Comment on above: Performed By: #### . Automated Diff #### [address] [address] Albumin/Globulin [Mass ratio] 1.1 {ratio} Normal 1.1-2.2 [facility] Comment on above: Performed By: #### . Automated Diff #### [address] [address] Alk Phos 61 IU/L Normal 32-91 [facility] Comment on above: Performed By: #### . Automated Diff #### [address] [address] ALT [Catalytic activity/Vol] 17 U/L Normal 14-54 [facility] Comment on above: Performed By: #### . Automated Diff #### [address] [address] AST [Catalytic activity/Vol] 23 U/L Normal 15-41 [facility] Comment on above: Performed By: #### . Automated Diff #### [address] [address] Bili Total 0.7 mg/dL Normal 0.3-1.2 [facility] Comment on above: Performed By: #### . Automated Diff #### [address] [address] Creatinine [Mass/Vol] 0.83 mg/dL Normal 0.44-1.03 [facility] Comment on above: Performed By: #### . Automated Diff #### [address] [address] Protein [Mass/Vol] 7.4 g/dL Normal 6.5-8.1 [facility] Comment on above: Performed By: #### . Automated Diff #### [address] [address] Urea nitrogen [Mass/Vol] 14 mg/dL Normal 8-26 [facility] Comment on above: Performed By: #### . Automated Diff #### [address] [address] Urea nitrogen/Creatinine [Mass ratio] 16.9 mg/mg Normal 10.0-20.0 [facility] Comment on above: Performed By: #### . Automated Diff #### [address] [address] Anion gap [Moles/Vol] 12 mmol/L Normal 7-17 [facility] Comment on above: Performed By: #### . Automated Diff #### [address] [address] Calcium [Mass/Vol] 9.5 mg/dL Normal 8.5-10.3 [facility] Comment on above: Performed By: #### . Automated Diff #### [address] [address] Chloride [Moles/Vol] 94 mmol/L Low 98-110 [facility] Comment on above: Performed By: #### . Automated Diff #### [address] [address] CO2 [Moles/Vol] 24 mmol/L Normal 22-32 [facility] Comment on above: Performed By: #### . Automated Diff #### [address] [address] Glucose [Mass/Vol] 176 mg/dL High 70-99 [facility] Comment on above: Performed By: #### . Automated Diff #### [address] [address] Potassium [Moles/Vol] 4.0 mmol/L Normal 3.4-4.8 [facility] Comment on above: Performed By: #### . Automated Diff #### [facility] [address] [place] [address] Sodium [Moles/Vol] 126 mmol/L Low 133-142 [facility] Comment on above: Performed By: #### . Automated Diff #### [facility] [address] [place] [address] CT Brain w/o Contraston 09-24 CT Brain w/o Contrast EXAMINATION: CT Br ain w/o Contrast HISTORY: Weakness, dizziness), Transient ischemic attack (TIA) COMPARISON: No priors available for comparison TECHNIQUE: CT examination of the head without IV contrast. Dose reduction techniques were achieved by using automated exposure control and/or adjustment of mA and/or kV according to patient size and/or use of iterative reconstruction technique. FINDINGS: Hemorrhage: No intraparenchymal hemorrhage or abnormal extra-axial fluid collection. Infarct: No definitive purvis-white matter differentiation or regions of cortical sulcal effacement. There is questionable punctate hyperdensity involving the left MCA within the region of the left sylvian fissure (axial series 2, image 25. Otherwise the MCAs and intracranial vasculature are symmetrical in course, caliber and density. Vasogenic edema or chronic microvascular ischemia: Periventricular and subcortical white matter hypodensities, favoring microvascular ischemic changes. More specifically, there are regions of ill-defined hypoattenuation involving the subcortical white matter in the regions of bilateral parietal and occipital lobes.. Hydrocephalus: Mild senescent changes. No acute hydrocephalus in the absence of comparison with prior studies.. Herniation: No evidence of herniation. Midline Shift: None. Post Fossa: Radiopaque density/calcification of unknown significance in the right cerebellum. Allowing for artifact, there is otherwise no evidence for acute or suspicious pathology. Orbits/Globes: No acute or suspicious pathology. Soft Tissue/Scalp: Intact. Sinuses/Mastoid Air Cells: Included paranasal sinuses and mastoid air cells well aerated. Bones (Calvarium and skull base): No depressed calvarial fracture. Impression: No acute hemorrhage. No definitive purvis-white matter differentiation or regions of cortical sulcal effacement. There is questionable punctate hyperdensity involving the left MCA within the region of the left sylvian fissure as annotated above. Otherwise the MCAs and intracranial vasculature are symmetrical in course, caliber and density. If clinical concern for acute ischemia, MRI with diffusion is more sensitive. Periventricular and subcortical white matter hypodensities, favoring microvascular ischemic changes. More specifically, there are regions of ill-defined hypoattenuation involving the subcortical white matter in the regions of bilateral parietal and occipital lobes. Findings could favor posterior reversible encephalopathy syndrome (PRES) in the proper clinical scenario. Radiation Dose Estimate: CTDI(mGy):0.430851 / / / kVp:120.275977 / mAs:0.762142 / / / DLP(mGy-cm):6.069192G slim Part: Head CTDI(mGy):43.108883 / / / kVp:120.273315 / mAs:175.525663 / / / DLP(mGy-cm):755.20163 3Body Part: Head Final Dictated by: Wayne Winston MD Dictated DT/TM: 10.12.2022 5:35 pm Signed by: Wayne Winston MD Signed (Electronic Signature): 10.12.2022 5:49 pm (If Report Is Signed, Electronically Signed in Other Vendor System) Normal [facility] Diff Autoon 10-12-2022 Baso Absolute 0.1 x10*3/mcL Normal 0.0-0.2 [place] Comment on above: Performed By: #### . Automated Diff #### [address] [address] Basophils/100 WBC (Bld) 0.8 % Normal 0.0-1.5 [facility] Comment on above: Performed By: #### . Automated Diff #### [address] [address] Eos Absolute 0.3 x10*3/mcL Normal 0.0-0.4 [facility] Comment on above: Performed By: #### . Automated Diff #### [address] [address] Eosinophils/100 WBC (Bld) 3.7 % Normal 0.0-5.4 [facility] Comment on above: Performed By: #### . Automated Diff #### [address] [address] Lymph Absolute 1.8 x10*3/mcL Normal 1.0-4.8 [facility] Comment on above: Performed By: #### . Automated Diff #### [address] [address] Lymphocytes/100 WBC (Bld) 26.1 % Low 27.2-40.8 [facility] Comment on above: Performed By: #### . Automated Diff #### [address] [address] Treasure Absolute 0.5 x10*3/mcL Normal 0.1-1.1 [place] Comment on above: Performed By: #### . Automated Diff #### [address] [address] Monocytes/100 WBC (Bld) 6.9 % Normal 3.7-11.9 [facility] Comment on above: Performed By: #### . Automated Diff #### [address] [address] Neutro Absolute 4.4 x10*3/mcL Normal 1.8-7.7 [facility] Comment on above: Performed By: #### . Automated Diff #### [address] [address] Neutro Auto 62.5 % Normal 47.2-70.8 [facility] Comment on above: Performed By: #### . Automated Diff #### [address] [address] ED Note-Physicianon 10-13-19 ED Note-Physician Case received in sig n out from Dr. Lantigua. The patient has presented with reported hyponatremia with an abnormal head CT, pending MRI Patient resting in no acute distress. The patient's MRI was interpreted by radiology there was some delay in disposition because the radiologist had not signed the result but we have the result now and it is interpreted as a normal MRI without evidence of a vascular abnormality or stroke. This patient was already started on management for urinary tract infection she will be discharged home on antibiotics and encouraged follow-up with primary care physician outpatient.. I reviewed the follow up plan with the patient. ED return precautions reviewed and follow up plan discussed FINAL DISPSITION: Discharged home in stable condition FINAL IMPRESSION: Hyponatremia acute on chronic; acute urinary tract infection dizziness; ED addendum and disposition Electronically signed by Jane Danielle DO 10/12/22 22:32 EDT Normal [facility] ED Note-Physician Chief Complaint pt reports feeling dizzy and weak, states she got overheated, this usually happens when her NA is low History of Present Illness 77 year-old lady with history of hyponatremia who presented to the emergency department because of an episode of feeling dizzy and weak and overheated . Patient said that she was together with her friends when she started feeling lightheadedness described as dizziness. She felt so weak that they sat her down and when they did she felt very hot . She knew that she has history of hyponatremia and she was given a beverage with plenty of sodium. She was eventually brought in to the emergency department by her friend. By the time she got to the emergency department that she was feeling well and the symptoms had resolved. The dizziness and the weakness of the feeling hot and has had all resolved. Currently she is asymptomatic. She denies any headache neck pain or back pain. She has no visual disturbances. She has no cranial nerve abnormalities. She has no motor dysfunction. She has no sensory abnormalities and she is neurologically intact. No evidence to suggest TIA. She denies any associated chest pain shortness of breath palpitations diaphoresis orthopnea proximal nocturnal dyspnea or any other cardiorespiratory symptoms. She has not had any recent URI or ENT symptoms. No associated nausea vomiting diarrhea abdominal pain flank pains dysuria urgency or any other GI or symptoms. She has no associated musculoskeletal musculoskeletal or dermatologic symptoms. Clinically she looks well she is not in distress she has an otherwise normal exam. Review of Systems As reviewed in the HPI. All other systems reviewed are negative or normal. Physical Exam CONSTITUTIONAL: [no apparent distress, well appearing] SKIN: [warm, dry, no jaundice, hives or petechiae] EYES: [pupils are equally round, extraocular movements intact without nystagmus, clear conjunctiva, non-icteric sclera] HENT: [normocephalic, atraumatic, moist mucus membranes, oropharynx clear without exudates] NECK: [Nontender and supple with no nuchal rigidity, no lymphadenopathy, full range of motion] PULMONARY: [clear to auscultation without wheezes, rhonchi, or rales, normal excursion, no accessory muscle use and no stridor] CARDIOVASCULAR: [regular rate, rhythm, normal S1 and S2. No appreciated murmurs. Strong radial pulses with intact distal perfusion] GASTROINTESTINAL: [soft, non-tender, non-distended, no palpable masses, no rebound or guarding] GENITOURINARY: [No costovertebral angle tenderness to palpation] LYMPHATICS: [no edema in lower extremities, no lymphadenopathy] MUSCULOSKELETAL: [Extremities are nontender to palpation and have no gross deformity, no edema, redness, or swelling] NEUROLOGIC: [alert and oriented x 3, GCS 15, normal mentation and speech. Moves all extremities x 4 without motor or sensory deficit . PSYCHIATRIC: [normal mood and affect, thought process is clear and linear] Vitals & Measurements T: 36.7 ?C (Oral) HR: 68 (Peripheral) RR: 17 BP: 179/108 SpO2: 97% Additional Vitals No qualifying data available. Procedure No qualifying data available. ASA Documentation Medical Decision Making 77 year-old lady with history of hyponatremia who presented to the emergency department because of an episode of feeling dizzy and weak and overheated . Patient said that she was together with her friends when she started feeling lightheadedness described as dizziness. She felt so weak that they sat her down and when they did she felt very hot . She knew that she has history of hyponatremia and she was given a beverage with plenty of sodium. She was eventually brought in to the emergency department by her friend. By the time she got to the emergency department that she was feeling well and the symptoms had resolved. The dizziness and the weakness of the feeling hot and has had all resolved. Currently she is asymptomatic. She denies any headache neck pain or back pain. She has no visual disturbances. She has no cranial nerve abnormalities. She has no motor dysfunction. She has no sensory abnormalities and she is neurologically intact. No evidence to suggest TIA. She denies any associated chest pain shortness of breath palpitations diaphoresis orthopnea proximal nocturnal dyspnea or any other cardiorespiratory symptoms. She has not had any recent URI or ENT symptoms. No associated nausea vomiting diarrhea abdominal pain flank pains dysuria urgency or any other GI or symptoms. She has no associated musculoskeletal musculoskeletal or dermatologic symptoms. Clinically she looks well she is not in distress she has an otherwise normal exam. Patient is asymptomatic at this time. Patient did not want to stay in the hospital however I did convince her to have at least a minimal work-up to exclude a TIA and or acute coronary syndrome. This may present in a very atypical way like she did. Labs and imaging are therefore ordered. Patient's WBC count i (more content not included)... Normal [facility] PTon 10-12-2022 INR Coag (PPP) [Relative time] 1.0 {INR} Normal <=3.5 [facility] Comment on above: Result Comment: INR has no normal range. INR Therapeutic range is: 2.0-3.0 (AF, CVA, TIAs, DVT prophylaxis, acute DVT) 2.5-3.5 ([facility] heart valves, recurrent thrombosis/emboli) Performed By: #### P TINR #### [address] [address] PT Coag (PPP) [Time] 10.6 s Normal 9.3-11.9 [facility] Comment on above: Performed By: #### P TINR #### [address] [address] PTTon 10-12-2022 aPTT Coag (Bld) [Time] 22.0 s Normal 20.6-29.2 [facility] Comment on above: Performed By: #### A MI2 #### [address] [address] UA w Culture if Indon 2022 Color (U) Light-Yellow Normal [facility] Comment on above: Performed By: #### A MI2 #### [facility] [address] [place] [address], [place] [address] Ketones Ql (U) Negative Normal Negative [facility] Comment on above: Performed By: #### A MI2 #### [facility] [address] [place] [address], [place] [address] UA Blood Negative Normal Negative [facility] Comment on above: Performed By: #### A MI2 #### [address] [place] [address] UA Clarity Turbid Normal [facility] Comment on above: Performed By: #### A MI2 #### [facility] [address] [place] [address], [place] [address] UA Glucose Normal Normal Negative [facility] Comment on above: Performed By: #### A MI2 #### [address] [place] [address] UA Leukocyte Esterase 500 Abnormal Negative [facility] Comment on above: Performed By: #### A MI2 #### [address] [place] [address] UA Nitrite 2+ Abnormal Negative [facility] Comment on above: Performed By: #### A MI2 #### [address] [place] [address] UA pH 6.5 Normal 4.5 - 7.8 [facility] Comment on above: Performed By: #### A MI2 #### [facility] [address] [place] [address], [place] [address] UA Protein 30 mg/dL Abnormal Negative [facility] Comment on above: Performed By: #### A MI2 #### [facility] [address] [place] [address], [place] [address] UA Source Clean Catch Normal [facility] Comment on above: Performed By: #### A MI2 #### [address] [place] [address] UA Spec Grav 1.017 Normal 1.003-1.035 [facility] Comment on above: Performed By: #### A MI2 #### [address] [place] [address] UA Urobilinogen Normal Normal 0.2 - 1.0 [facility] Comment on above: Performed By: #### A MI2 #### [facility] [address] [place] [address] Urobilinogen (U) [Mass/Vol] Negative Normal Negative [facility] Comment on above: Performed By: #### A MI2 #### [id number] [place] [address] XR Chest 1 Viewon 10-12-2022 XR Chest 1 View EXAM: XR Chest 1 Vie w at 1732 hours HISTORY: Chest pain, COMPARISON: None. TECHNIQUE: AP upright portable chest x-ray FINDINGS: The heart is mildly enlarged without cardiac decompensation. No acute infiltrate, effusion or pneumothorax is identified. Opacity in the right cardiac region suggest a hiatal hernia. The osseous structures are grossly intact. IMPRESSION: Cardiomegaly without overt cardiac decompensation. A focal infiltrate is not identified. Comparison with a previous study would be helpful in determining the chronicity of these findings. Final Dictated by: Helen JEROME PhD, Khris Feliz Dictated DT/TM: 10/12/2022 5:56 pm Signed by: Helen JEROME PhD, Khris Feliz Signed (Electronic Signature): 10/12/2022 5:57 pm (If Report Is Signed, Electronically Signed in Other Vendor System) Normal [facility] MG MAMM SCREEN 3D PARKER CADon 01-15-2022 MG MAMM SCREEN 3D PARKER CAD Patient: INGRID LUNA Exam Date: 01/15/2022 : 1945 Gender:F Ordering : DR DIANE ANGELO M.D. Admission #: [id number] Family : Order #: [id number] CLICK HERE TO VIEW EXAM RADIOLOGY REPORT PROCEDURE: MAMMOGRAM SCREENING 3D BILATERAL CAD COMPARISON: MG MAMM SCREEN 3D PARKER CAD, 11/22/2020. MG MAMM SCREEN PARKER W CAD, 02/06/2019. INDICATIONS: Screening mammography Calculator Name NCI Breast Cancer Risk Assessment Tool 5 Year Breast Cancer Risk 1.30% Lifetime Breast Cancer Risk 2.80% Personal Breast Cancer No Personal Ovarian Cancer No Treatments None Family Cancers Daughter with thyroid cancer at age 22; Brother with colon cancer at age 60. LOCATION: [facility] BREAST COMPOSITION: Heterogeneously dense,which may obscure small masses. FINDINGS: DIAGNOSTIC CATEGORY 1--NEGATIVE. RIGHT BREAST: No significant suspicious finding. No significant change has occurred. LEFT BREAST: No significant suspicious finding. No significant change has occurred. RECOMMENDATIONS: ROUTINE MAMMOGRAM AND CLINICAL EVALUATION IN 12 MONTHS. PLEASE NOTE: A NORMAL MAMMOGRAM DOES NOT EXCLUDE THE POSSIBILITY OF BREAST CANCER. A CLINICALLY SUSPICIOUS PALPABLE LUMP SHOULD BE BIOPSIED. Dictated by: José Miguel Angeles M.D. on 01/15/2022 at 11:32 Approved by: José Miguel Angeles M.D. on 01/15/2022 at 12:[address] [facility] US CHAPITO DOP LEG RTon 11-16-19 US CHAPITO DOP LEG RT Ultrasound venous duplex scan right lower extremity CLINICAL: History of deep venous thrombus and superficial thrombophlebitis in right leg on prior study 09/08/2021 TECHNIQUE: Purvis-scale, color Doppler and Duplex examination of the right lower extremity was performed with and without provocative maneuvers. FINDINGS: Comparison: Ultrasound 09/08/2021 Sonographic examination of the right lower extremity deep venous system to include the common femoral, superficial femoral and popliteal veins, demonstrates normal compressibility, color-flow, respiratory variation, and augmentation. The origin of the greater saphenous vein demonstrates normal compression, and there is normal color-flow in the proximal profunda femoral vein. There is normal compression of the peroneal and posterior tibial veins. The greater saphenous vein at the ankle has a small amount of echogenic material and is noncompressible compatible with focal thrombus, correlates with patient's area of palpable concern. IMPRESSION: 1. No deep venous thrombosis in the right lower extremity. The prior deep venous thrombosis in the right posterior tibial vein on ultrasound 09/08/2021 has resolved. 2. Focal superficial venous thrombus in the distal greater saphenous vein at the ankle. This corresponds to patient's area of palpable concern and is improved from the previous ultrasound. Electronically authenticated by: MURTAZA MILLER Date: 2021-11-15 15:[address] [facility] Office Visit (Cardiology)on 11-06-2021 Follow-up visit Diagnoses/Problems Assessed Syncope (780.2) (R55) Stenosis of left carotid artery (433.10) (I65.22) Essential tremor (333.1) (G25.0) Never a smoker Pulmonary hypertension (416.8) (I27.20) Body mass index (BMI) of 21.0 to 21.9 in adult (V85.1) (Z68.21) Anxiety and depression (300.00,311) (F41.9,F32.A) DVT (deep venous thrombosis) (453.40) (I82.409) Orders SocHx: Never a smoker Tobacco Use Screening; Status:Complete; Done: 06Nov2021 Stenosis of left carotid artery Start: Aspirin EC Adult Low Strength 81 MG Oral Tablet Delayed Release; 1 tablet twice weekly Start: Atorvastatin Calcium 10 MG Oral Tablet; TAKE 1 TABLET AT BEDTIME Patient Instructions By signing my name below, ILa LPN, Scribe, attest that this documentation has been prepared under the direction and in the presence of Dr. Tammy Celis MD. All medical record entries made by the Pilloibe were at my direction and personally dictated by me. I have reviewed the chart and agree that the record accurately reflects my personal performance of the history, physical exam, discussion and plan. Please bring all medicines, vitamins, and herbal supplements with you when you come to the office. Prescriptions will not be filled unless you are compliant with your follow up appointments or have a follow up appointment scheduled as per instruction of your physician. Refills should be requested at the time of your visit. Follow-up as needed only Patient is to increase her aspirin 81mg daily after she discontinues her Eliquis in Jan 2022 Chief Complaint INGRID LUNA is being seen for a 6 month follow-up of. History of Present Illness Patient is here for follow-up to the management for recent evaluation for syncope, and recent finding of carotid disease. Patient underwent work-up recently. Her 30-day event monitor failed to demonstrate any arrhythmia. Her carotid Doppler showed moderate left carotid disease. She reports no further symptoms since I advised her to increase her fluid and salt intake. She reports she developed some lower extremity edema and was diagnosed with superficial lower extremity DVT recently result not available to me Assessment 1. Syncope I suspect likely due to transient hypotension or bradycardia. No recurrence since she was evaluated. She continues to maintain high fluid intake. Her cardiac work-up noted and reviewed with her including her event monitor and carotid Doppler 2. Essential tremor 3. Symptoms of anxiety and depression 4. Moderate left carotid disease 5. Newly diagnosed lower extremity superficial DVT started on Eliquis 6. Mild pulmonary hypertension noted on prior Plan 1. I advised the patient to increase her fluid intake to 12 cups a day and have sodium intake to 10 g a day 2. I advised her to change her position gradually and to monitor her blood pressure 3. I reviewed the results of her carotid and echo with her 4. I low-dose aspirin 81 mg twice weekly while on Eliquis. And I told her if she quit taking Eliquis as planned in 3 to 6 months she should continue with aspirin 81 mg daily 5. I recommended atorvastatin 10 mg once daily in view of carotid disease 6. I advised her to notify me change in cardiac status or symptoms 7. The patient requested that she will follow-up with us on an as-needed basis and will continue her long-term follow-up with her PCP because of difficulty with transportation Surgical History Problems History of Colonoscopy Managed By: Sarah JEROME, Eldon Lamar (Gastroenterology); Resolved Date: 27 May 2013 History of Tubal ligation Current Meds Medication NameInstruction Centrum Silver Ultra Womens Oral TabletTAKE 1 TABLET DAILY. Eliquis 5 MG Oral TabletTake one tablet twice daily Primidone 50 MG Oral TabletTAKE 1 TABLET AT BEDTIME. Turmeric CAPSTAKE 1 CAPSULE Daily Allergies Medication Sulfa Drugs Allergy; Hives; Rash; Recorded By: Vianey Juan; 03/28/2021 12:59:25 PM Social History Problems Caffeine use (V49.89) (Z78.9) COFFEE 2 CUPS DAILY Never a smoker No alcohol use No illicit drug use Review of Systems Constitutional: not feeling tired. Cardiovascular: no intermittent leg claudication and as noted in HPI. Respiratory: no cough and no shortness of breath. Gastrointestinal: no change in bowel habits and no blood in stools. Integumentary: no skin rashes. Neurological: no seizures and no frequent falls. All other systems have been reviewed and are negative for complaint. Vitals Vital Signs Recorded: 06Nov2021 03:38PMRecorded: 06Nov2021 03:19PM Uauuivut799, LUE, Aiyinhn801, LUE, Sitting Sgbzrgahc63, LUE, Tdmpfkq15, LUE, Sitting Heart Rate76, L Radial Height5 ft 4 in Vnlnlc112 lb BMI Qnxmatvnin90.17 kg/m2 BSA Calculated1.66 Tobacco Useb) No PHQ-2 #1. Over the last 2 weeks have you felt down, depressed or hopeless? (If yes, answer PHQ-9 below)No PHQ-2 #2. Over the last 2 weeks have you felt little interest or plea (more content not included)... Normal [employer] Tobacco Screening.on 022 Adult depression screening assessment No [facility] y [address] DO Work Phone: Fall risk assessment a) No falls within the last year [facility] [employer] [address] y 250 DO Work Phone: Tobacco use status [facility] b) No M [facility] [employer] y 250 DO Work Phone: CHAPITO DOP LEG RTon 09-09-19 CHAPITO DOP LEG RT EXAMINATION: US CHAPITO DOP LEG RT HISTORY: Mass of skin of right lower leg ; lower right leg lump COMPARISON: No relevant comparison available. FINDINGS: REGION: Right lower extremity THROMBI: Short segment of nonocclusive thrombus within one of the posterior tibial veins. Short segment thrombus within the great saphenous vein near the ankle and within the small saphenous vein mid calf. COMPRESSIBILITY: Noncompressible segments. FLOW: There is absence versus minimal flow. OTHER: None. IMPRESSION: 1. Small amount deep vein thrombus within the posterior tibial vein of the middistal calf. 2. Superficial thrombophlebitis involving the distal great saphenous vein with what appears to be a warehouse selector vein extending to the posterior tibial vein. 3. Superficial thrombophlebitis involving the mid calf small saphenous vein. Electronically authenticated by: JOSÉ MIGUEL ANGELES Date: 2021-09-08 12:18 Normal [facility] CBC AUTO DIFFon 08-10-2021 BASO # 0.1 103/ul Normal 0.0-0.1 [facility] Comment on above: Performed By: #### D ATCBC #### [facility] [address] [address] [address] Blas Andre Basophils/100 WBC (Bld) 0.7 % Normal 0.2-2.0 [facility] Comment on above: Performed By: #### D ATCBC #### [facility] [address] [place] [address] Dr. Blas Andre EO # 0.3 103/ul Normal 0.0-0.7 [facility] Comment on above: Performed By: #### D ATCBC #### [facility] [address] [place] [address] Dr. Blas Andre Eosinophils/100 WBC (Bld) 3.6 % Normal 0.9-7.0 [facility] Comment on above: Performed By: #### D ATCBC #### [facility] [address] [place] [address] Dr. Blas Andre Erythrocyte distribution width (RBC) [Ratio] 13.4 % Normal 11.0-15.0 [facility] Comment on above: Performed By: #### D ATCBC #### [facility] [address] [place] [address] Dr. Blas Andre Hematocrit (Bld) [Volume fraction] 39.7 % Normal 36.0-48.0 [facility] Comment on above: Performed By: #### D ATCBC #### [facility] [address] [place] [address] Dr. Blas Andre Hemoglobin (Bld) [Mass/Vol] 13.2 g/dL Normal 12.0-16.0 [facility] Comment on above: Performed By: #### D ATCBC #### [facility] [address] [place] [address] Dr. Blas Andre IG # 0.02 10e3/ul Normal 0.00-0.03 [facility] Comment on above: Performed By: #### D ATCBC #### [facility] [address] [place] [address] Dr. Blas Andre IG % 0.3 % Normal 0.0-0.5 [facility] Comment on above: Performed By: #### D ATCBC #### [facility] [address] [place] [address] Dr. Blas Andre LYMPH # 2.0 103/ul Normal 1.2-3.8 [facility] Comment on above: Performed By: #### D ATCBC #### [facility] [address] [place] [address] Dr. Blas Andre Lymphocytes/100 WBC (Bld) 28.4 % Normal 20.5-60.0 [facility] Comment on above: Performed By: #### D ATCBC #### [facility] [address] [place] [address] Dr. Blas Andre MCH (RBC) [Entitic mass] 30.1 pg Normal 26.7-34.0 [facility] Comment on above: Performed By: #### D ATCBC #### [facility] [address] [place] [address] Dr. Blas Andre MCHC (RBC) [Mass/Vol] 33.2 g/dL Normal 29.9-35.2 [facility] Comment on above: Performed By: #### D ATCBC #### [facility] [address] [place] [address] Dr. Blas Andre MCV (RBC) [Entitic vol] 90.6 fL Normal 81.0-99.0 [facility] Comment on above: Performed By: #### D ATCBC #### [facility] [address] [place] [address] Dr. Blas Andre MONO # 0.7 103/ul Normal 0.3-0.8 [facility] Comment on above: Performed By: #### D ATCBC #### [facility] [address] [place] [address] Dr. Blas Andre Monocytes/100 WBC (Bld) 10.1 % Normal 1.7-12.0 [facility] Comment on above: Performed By: #### D ATCBC #### [facility] [address] [place] [address] Dr. Blas Andre NEUT # 4.0 103/ul Normal 1.4-6.5 [facility] Comment on above: Performed By: #### D ATCBC #### [facility] [address] [place] [address] Dr. Blas Andre Neutrophils/100 WBC (Bld) 56.9 % Normal 43.0-75.0 [facility] Comment on above: Performed By: #### D ATCBC #### [facility] [address] [place] [address] Dr. Blas Andre Platelet mean volume (Bld) [Entitic vol] 10.1 fL Normal 9.5-13.5 [facility] Comment on above: Performed By: #### D ATCBC #### [facility] [address] [place] [address] Dr. Blas Andre PLT 276 103/ul Normal 150-450 [facility] Comment on above: Performed By: #### D ATCBC #### [facility] [address] [place] [address] Dr. Blas Andre RBC 4.38 106/ul Normal 4.20-5.40 [facility] Comment on above: Performed By: #### D ATCBC #### [facility] [address] [place] [address] Dr. Blas Andre WBC 7.0 103/ul Normal 4.0-11.0 [facility] Comment on above: Performed By: #### D ATCBC #### [facility] [address] [place] [address] Dr. Blas Andre BILL- BMP WITH LIPIDon 2021 Anion gap [Moles/Vol] 11.5 mmol/L Normal [facility] Comment on above: Performed By: #### D ATBMP #### [facility] [address] [place] [address] Dr. Blas Andre Calcium [Mass/Vol] 9.0 mg/dL Normal 8.4-10.2 [facility] Comment on above: Performed By: #### D ATBMP #### [facility] [address] [place] [address] Dr. Blas Andre Chloride [Moles/Vol] 99 mmol/L Normal 98-107 [facility] Comment on above: Performed By: #### D ATBMP #### [facility] [address] [place] [address] Dr. Blas Andre Cholesterol [Mass/Vol] 187 mg/dL Normal <=200 Th [facility] Comment on above: Performed By: #### D ATBMP #### [facility] [address] [address] [address] Blas Andre Cholesterol in HDL [Mass/Vol] 102 mg/dL Critically high 40-60 [facility] Comment on above: Performed By: #### D ATBMP #### [facility] [address] [address] [address] Blas Andre Cholesterol in LDL [Mass/Vol] 75.2 mg/dL Normal [facility] Comment on above: Performed By: #### D ATBMP #### [facility] [address] [address] [address] Blas Andre CO2 [Moles/Vol] 28.7 mmol/L Normal 22.0-30.0 [facility] Comment on above: Performed By: #### D ATBMP #### [facility] [address] [place] [address] Dr. Blas Andre Creatinine [Mass/Vol] 0.60 mg/dL Normal 0.52-1.04 [facility] Comment on above: Performed By: #### D ATBMP #### [facility] [address] [place] [address] Dr. Blas Andre EGFR-AF VENEZUELAN >60 Normal >=60 [facility] Comment on above: Performed By: #### D ATBMP #### [facility] [address] [address] [address] Blas Andre EGFR-NON AF VENEZUELAN >60 Normal >=60 [facility] Comment on above: Performed By: #### D ATBMP #### [facility] [address] [address] [address] Blas Andre Glucose [Mass/Vol] 92 mg/dL Normal 74-106 [facility] Comment on above: Performed By: #### D ATBMP #### [facility] [address] [address] [address] Blsa Andre HDL NORMAL > or = 60 mg/dl - LO W CARDIOVASCULAR RISK <40 mg/dl - HIGH CARDIOVASCULAR RISK Normal [facility] Comment on above: Performed By: #### D ATBMP #### [facility] [address] [address] [address] Blas Andre LDL CALC NORMAL SEE BELOW Normal [facility] Comment on above: Result Comment: <100 mg/dl OPTIMAL 100 - 129 mg/dl NEAR OR ABOVE OPTIMAL 130 - 159 mg/dl BORDERLINE HIGH 160 - 189 mg/dl HIGH >190 mg/dl VERY HIGH Performed By: #### D ATBMP #### [facility] [address] [address] [address] Blas Andre Potassium [Moles/Vol] 4.2 mmol/L Normal 3.4-5.0 [facility] Comment on above: Performed By: #### D ATBMP #### [facility] [address] [address] [address] Blas Andre Sodium [Moles/Vol] 135 mmol/L Critically low 137-145 Th [facility] Comment on above: Performed By: #### D ATBMP #### [facility] [address] [address] [address] Blas Andre Triglyceride [Mass/Vol] 49 mg/dL Normal <=150 [facility] Comment on above: Performed By: #### D ATBMP #### [facility] [address] [address] [address] Blas Andre Urea nitrogen [Mass/Vol] 14.0 mg/dL Normal 7.0-17.0 [facility] Comment on above: Performed By: #### D ATBMP #### [facility] [address] [address] [address] Blas Andre Urea nitrogen/Creatinine [Mass ratio] 23.3 mg/mg Normal [facility] Comment on above: Performed By: #### D ATBMP #### [facility] [address] [address] [address] Blas Andre VLDL CALC 9.8 mg/dL Normal [facility] Comment on above: Performed By: #### D ATBMP #### [facility] [address] [address] [address] Blas Andre VAS LAB Carotid Artery Dupl ex Ultrasounon 04-25-2021 VAS LAB Carotid Artery Duplex Ultrasoun [address], [address], [place] [address] Vascular Lab Report Carotid Artery Duplex Ultrasound Patient Name: INGRID LUNA Reading Physician: [id number] Nancy Crockett MD, [facility] Study Date: 04/25/2021 Referring [id number] TAMMY DOEAmanda Physician: MRN/PID: [id number] PCP: Diane Angelo Accession/Order#: [id number] CC Report to: Date of : 1945 Technologist: Juhi Wiggins [facility], T Gender: F Technologist 2: Admission Status: Outpatient Location Performed: [facility] Diagnosis/ICD: A87-[place] and collapse Indication: Dizziness, Essential Tremor Procedure/CPT: 57182 Cerebrovascular Carotid Duplex scan complete-[id number] CONCLUSIONS: Right Carotid: Findings are consistent with less than 50% stenosis of the right proximal ICA. Laminar flow seen by color Doppler. Right external carotid artery appears patent with no evidence of stenosis. No evidence of hemodynamically significant stenosis of the right common carotid artery. The right vertebral artery is patent with antegrade flow. Left Carotid: Findings are consistent with 50 to 69% stenosis of the left proximal ICA. Laminar flow seen by color Doppler. There are elevated velocities in the left ECA that are suggestive of disease. No evidence of hemodynamically significant stenosis of the left common carotid artery. The left vertebral artery is patent with antegrade flow. Imaging AND Doppler Findings: Right Plaque Morph: The proximal right internal carotid artery demonstrates irregular and heterogenous plaque. The distal right common carotid artery demonstrates heterogenous and irregular plaque. Left Plaque Morph: The proximal left internal carotid artery demonstrates heterogenous, irregular and calcified plaque. The distal left common carotid artery demonstrates heterogenous, irregular and calcified plaque. Right Left PSV EDV PSV EDV 73 cm/s 20 cm/s CCA P 70 cm/s 15 cm/s 81 cm/s 25 cm/s CCA M 70 cm/s 21 cm/s 86 cm/s 22 cm/s CCA D 61 cm/s 19 cm/s 68 cm/s 24 cm/s ICA P 154 cm/s 34 cm/s 94 cm/s 33 cm/s ICA M 97 cm/s 28 cm/s 114 cm/s 40 cm/s ICA D 89 cm/s 34 cm/s 91 cm/s ECA 195 cm/s 88 cm/s Vertebral 64 cm/s Right Left ICA/CCA Ratio 0.8 2.5 [id number] Nancy Crockett MD, FACC Final Normal [facility] VASC LAB Carotid Artery Dupl ex Ultrasoundon 04-25-2021 US.doppler Carotid arteries -[facility] [address] [place] Work Phone: IO EKG Electrocardiogram- 12 Leadon 03-28-2021 IO EKG Electrocardiogram- 12 Lead See Scanned Document -[facility] io [facility] [address] DO Work Phone: Office Visit (Cardiology)on 03-28-2021 Follow-up visit Diagnoses/Problems Assessed Syncope (780.2) (R55) Body mass index (BMI) of 21.0 to 21.9 in adult (V85.1) (Z68.21) Essential tremor (333.1) (G25.0) Anxiety and depression (300.00,311) (F41.9,F32.A) Never a smoker Orders Syncope IO EKG Electrocardiogram- 12 Lead; Status:Complete - Retrospective Authorization; Done: 28Mar2021 01:43PM IO Event Monitor 30 days; Status:Active - Perform Order,Retrospective Authorization; Requested for:28Mar2021; Ultrasound Duplex Carotid Bilateral; Status:Hold For - Scheduling,Retrospect braxton Authorization; Requested for:28Mar2021; Radiologist to Determine Optimal Study : Y What are the patient's signs and symptoms? : syncope follow up after testing continue current medications patient educated on what to do when feeling faint Patient Instructions By signing my name below, I, Pillo Earl LPNibe, attest that this documentation has been prepared under the direction and in the presence of Dr. Tammy Celis MD. All medical record entries made by the Scribe were at my direction and personally dictated by me. I have reviewed the chart and agree that the record accurately reflects my personal performance of the history, physical exam, discussion and plan. Please bring all medicines, vitamins, and herbal supplements with you when you come to the office. Prescriptions will not be filled unless you are compliant with your follow up appointments or have a follow up appointment scheduled as per instruction of your physician. Refills should be requested at the time of your visit patient to drink plenty of fluid 10-12 cups fluid daily increase sodium intake Chief Complaint INGRID LUNA is being seen for a consultation for syncope. History of Present Illness Patient is here for cardiovascular evaluation for syncope. Patient is a pleasant 75-year-old white female with no prior cardiac history her reported 2 episodes of lightheadedness and one episode of dizziness and syncope. Patient report recently while she was at a restaurant she felt lightheaded, dizzy and almost passed out. She was taken to the emergency room at [facility] and was evaluated. She was told her blood pressure was borderline low and was advised to follow-up with her primary care physician. Following that she had another episode while at home in the kitchen she passed out to briefly fell down to the floor. She denies seizure activity, incontinence or tongue biting. There was no neurologic symptoms. Episode was very brief. Since that episode she been feeling well. She has seen her family physician. Her basic work-up in the emergency room was done and was negative. Her EKG was normal. At the patient was referred for an echocardiogram result of which is not available to me. Patient other than essential tremor has no other issues or complaint. She does report that she has lost close to 15 pounds recently and she reports symptoms of depression and stress related to the passing of her recently Assessment 1. Syncope I suspect likely due to transient hypotension or bradycardia 2. Essential tremor 3. Symptoms of anxiety and depression 4. Social stress due to the passing of her recently 5. Recent 15 pound weight loss due to the above factors Plan 1. I advised the patient to increase her fluid intake to 12 cups a day and have sodium intake to 10 g a day 2. I advised her to change her position gradually and to monitor her blood pressure 3. I recommended carotid Doppler 4. I recommended monitor 5. We will try to retrieve her recent echo 6. I advised her to notify me change in cardiac status or symptoms 7. I advised her to avoid driving or dangerous position or situation and stay away from machinery, ladders or roofs etc. 8 follow-up after testing is done Surgical History Problems History of Colonoscopy Managed By: Sarah JEROME, Eldon Lamar (Gastroenterology); Resolved Date: 27 May 2013 History of Tubal ligation Current Meds Medication NameInstruction Turmeric CAPSTAKE 1 CAPSULE Daily Allergies Medication Sulfa Drugs Allergy; Hives; Rash; Recorded By: Vianey Juan; 03/28/2021 12:59:25 PM Family History Mother Family history of diabetes mellitus (V18.0) (Z83.3) Family history of myocardial infarction (V17.3) (Z82.49) Social History Problems Caffeine use (V49.89) (Z78.9) COFFEE 2 CUPS DAILY Never a smoker No alcohol use No illicit drug use Review of Systems Constitutional: not feeling tired. Eyes: no eyesight problems. ENT: no hearing loss and no nosebleeds. Cardiovascular: no intermittent leg claudication and as noted in HPI. Respiratory: no chronic cough and no shortness of breath. Gastrointestinal: no change in bowel habits and no blood in stools. Genitourinary: no urinary frequency. Skin: no skin rashes. Neurological: fainting, but no seizures and no frequent falls . Tremor. Psychiatric: no depression and not suicidal. All other systems hav (more content not included)... Normal [facility] Tobacco Screening.on 021 Fall risk assessment b) One or more fall s in the last year [facility] [address] DO Work Phone: Tobacco use status [facility] b) No M [facility] [address] DO Work Phone: Fall risk assessment b) One or more fall s in the last year [facility] [employer] [facility] [employer] [address] DO Work Phone: Tobacco use status [facility] b) No M [facility] [address] DO Work Phone: ECHOCARDIO M/2D COMPLETEon 1 ECHOCARDIO M/2D COMPLETE Patient: INGRID LUNA Exam Date: 03/16/2021 : 1945 Gender:F Ordering : SHAIKH WillardSabine JANIBOGDANShanda . Admission #: [id number] Family : DR DIANE ANGELO M.D. Order #: [id number] CLICK HERE TO VIEW EXAM ECHOCARDIOGRAM REPORT PROCEDURE: CARDIO PULMONARY ECHOCARDIO M/2D COMP INDICATIONS: Syncope COMPARISON: None. DESCRIPTION: COMPLETE ECHOCARDIOGRAM Real-time transthoracic echocardiography with 2D, M-mode, spectral and color flow Doppler performed. QUALITY: Technical quality was good. LEFT VENTRICLE: Normal chamber size. Normal left ventricular wall thickness. LV EF: Global left ventricular systolic function appears normal. Calculated left ventricular ejection fraction is 66%. DIASTOLIC: Grade I diastolic dysfunction. ATRIAL SEPTUM: Inadequately seen. LEFT ATRIUM: Moderate dilatation. RIGHT ATRIUM: Severe dilatation. RIGHT VENTRICLE: Appears enlarged. Right ventricular systolic function appears normal. TRICUSPID VALVE: Normal mobility and thickness. Severe regurgitation. Mild pulmonary hypertension. RVSP 36 mmHg. MITRAL VALVE: Normal mobility and thickness. No mitral valve prolapse. No evidence of mitral valve stenosis. There is no mitral annular calcification. Mild to moderate mitral regurgitation. AORTIC VALVE: Normal trileaflet appearance. No visible sclerosis. Normal leaflet mobility. No evidence of aortic valve stenosis. Mild aortic regurgitation. AORTIC ROOT: Normal diameter and appearance. PULMONIC VALVE: Normal thickness and mobility. No stenosis. Mild regurgitation. PERICARDIUM: No evidence of pericardial effusion. IVC: Collapses with inspirations. CONCLUSION: Global left ventricular systolic function is normal; visually estimated ejection fraction is 60 to 65%. Mild diastolic dysfunction. Biatrial enlargement. The right ventricle appears enlarged with normal systolic function. Severe tricuspid regurgitation. Mildly elevated right ventricular systolic pressure. Mild to moderate mitral regurgitation. Mild aortic regurgitation. Mild pulmonic regurgitation. Adult Echocardiography Procedure Report Left Ventricle LVEDD (3.7 - 5.6 cm): 4.46 cm LVESD (2.2 - 4.0 cm): 2.88 cm LVIVS thickness (0.6 - 1.2 cm): 9.08 mm LVPW thickness (0.5 - 1.0 cm): 8.54 mm e': 6.69 cm/s E - e': 7.70 LVOT Area (cm2): 3.14 cm2 LVOT Diameter 2.00 cm Left Ventricular Ejection Fraction: 65 % Left Ventricular Ejection Fraction (A2C): 70 % Left Ventricular Ejection Fraction (A4C): 61 % Left Atrium LA Volume Index (2D A2C): 34.40 ml/m2 Left Atrium Systolic Dimension: 3.10 cm Left Atrium Systolic Area(A2C): 20.20 cm2 Left Atrium Systolic Area(A4C): 22.20 cm2 Left Atrium Systolic Volume(A2C): 25856 mm3 Left Atrium Systolic Volume(A4C): 69794 mm3 Mitral Valve MV E to A Ratio: 0.70 Deceleration Arroyo: 2200 mm/s2 Mitral Valve A-Wave Peak Velocity: 71.10 cm/s Mitral Valve E-Wave Peak Velocity: 51.30 cm/s Right Ventricle RV Internal Diastolic Dimension: 3.12 cm Aorta AO Root Diam: 2.80 cm Aortic Valve AoV Area (Peak Dwight): 2.27 cm2 Deceleration Arroyo: 2460 mm/s2 Pressure Half-Time: 519 ms Peak Velocity: 437.00 cm/s Peak Gradient: 76 mm[Hg] Aortic Valve Cusp Separation: 1.90 cm Peak Velocity(Antegrade Flow): 137.00 cm/s Peak Gradient(Antegrade Flow): 8 mm[Hg] Tricuspid Valve Peak Velocity (Regurgitant Flow): 277.00 cm/s, 255.00 cm/s Peak Velocity: 46.30 cm/s Pulmonic Valve Peak Velocity: 93.00 cm/s Peak Gradient: 3 mm[Hg] Right Atrium Dictated by: Thony Vargas M.D. on 03/17/2021 at 14:50 Approved by: Thony Vargas M.D. on 03/17/2021 at 14:[address] [facility] Brain Natri. Peptideon 03-13 BNP Interpretation Pro-BNP Reference Range: Normal [facility] Comment on above: Result Comment: Rule Out: <300 [place] Zone: Age <50 300-450 Age 50-75 300-900 Age >75 300-1800 Usually represents mild to moderate HF but other cardiopulmonary causes cannot be ruled out. Rule In: Age <50 >450 Age 50-75 >900 Age >75 >1800 Performed By: #### B LINE FISHER, CP, TROPI, CDP #### [facility] [address] [place] [address] Circuit Board Assembler: Sd Smith MD Natriuretic peptide B (Bld) [Mass/Vol] 115 pg/mL Normal <300 [facility] Comment on above: Result Comment: Pro- BNP results cannot be compared to BNP results. Performed By: #### B LINE FISHER, CP, TROPI, CDP #### [facility] [address] [place] [address] Circuit Board Assembler: Sd Smith MD Brain Natriuretic PeptideOrd ered By: Judith Love on 03-13-2021 BNP Interpretation Pro-BNP Reference Range: [facility] Work Phone: Comment on above: Rule Out: <300 Medrano Zone: Age <50 300-450 Age 50-75 300-900 Age >75 300-1800 Usually represents mild to moderate HF but other cardiopulmonary causes cannot be ruled out. Rule In: Age <50 >450 Age 50-75 >900 Age >75 >1800 Natriuretic peptide B (Bld) [Mass/Vol] 115 pg/mL <300 [facility] [employer] Phone: Comment on above: Pro-BNP results ga ot be compared to BNP results. CBC Auto DifferentialOrdered By: Judith Love on 03-13-2021 Absolute Eos # 0.06 [facility] Work Phone: Absolute Immature Granulocyte 0.06 [facility] Work Phone: Absolute Lymph # 0.94 Low [facility] Work Phone: Absolute Treasure # 0.93 [facility] Work Phone: Basophils (Bld) [#/Vol] 0.05 10*3/uL [facility] [employer] Work Phone: Basophils/100 WBC (Bld) 0 % 0 - 2 % M [facility] [employer] Work Phone: Differential Type NOT REPORTED [facility] [employer] Phone: Eosinophils/100 WBC (Bld) 0 % Low 1 - 4 % [facility] Work Phone: Hematocrit (Bld) [Volume fraction] 36.9 % 36.3 - 47.1 % [facility] Work Phone: Hemoglobin.gastrointest inal spec 1 Ql (Stl) 12.5 g/dL 11.9 - 15.1 g/dL [employer] Phone: Immature granulocytes/100 WBC (Bld) 0 % 0 [employer] [facility] [employer] Phone: Interpretation and review of laboratory results Abnormal [employer] Phone: Lymphocytes/100 WBC (Bld) 7 % Low 24 - 43 % [employer] Phone: MCH (RBC) [Entitic mass] 30.6 pg 25.2 - 33.5 pg [employer] Phone: MCHC (RBC) [Mass/Vol] 33.9 g/dL 28.4 - 34.8 g/dL [employer] Phone: MCV (RBC) [Entitic vol] 90.4 fL 82.6 - 102.9 fL [employer] Phone: Monocytes/100 WBC (Bld) 7 % 3 - 12 % M [facility] Phone: NRBC Automated 0.0 0.0 per 100 WBC [employer] Phone: Platelet distribution width (Bld) [Ratio] 13.7 % 11.8 - 14.4 % [employer] Phone: Platelet Estimate NOT REPORTED [employer] Phone: Platelet mean volume (Bld) [Entitic vol] 10.3 fL 8.1 - 13.5 fL [employer] Phone: Platelets (Bld) [#/Vol] 234 10*3/uL [employer] Phone: RBC (Bld) [#/Vol] 4.08 10*6/uL 3.95 - 5.1 1 m/uL [employer] Phone: RBC (Bld) [#/Vol] NOT REPORTED [employer] Phone: Segmented neutrophils/100 WBC (Bld) 86 % High 36 - 65 % [facility] Work Phone: Segs Absolute 12.24 High [facility] [employer] Work Phone: WBC (Bld) [#/Vol] 14.3 10*3/uL High [facility] Work Phone: WBC (Bld) [#/Vol] NOT REPORTED [facility] Work Phone: [facility] Work Phone: CBC with Diffon 03-13-2021 Abs. Basophil 0.05 k/uL Normal 0.00-0.20 [facility] Comment on above: Performed By: #### B LINE FISHER, CP, TROPI, CDP #### [facility] [address] [place] [address] [address] [id number] Circuit Board Assembler: Sd Smith MD Abs.Imm.Granulocyte 0.06 k/uL Normal 0.00-0.30 [facility] Comment on above: Performed By: #### B LINE FISHER, LIANA, TROPI, CDP #### [address] [place] [address] Circuit Board Assembler: Sd Smith MD Abs.Neutrophil (Seg) 12.24 k/uL High 1.50-8.10 [facility] Comment on above: Performed By: #### B LINE FISHER, CP, TROPI, CDP #### [address] [place], [facility]83 Circuit Board Assembler: Sd Smith MD Basophils/100 WBC (Bld) 0 % Normal 0-2 M [facility] Comment on above: Performed By: #### B LINE FISHER, CP, TROPI, CDP #### [address] [place], [facility]83 Circuit Board Assembler: Sd Smith MD Eosinophils (Bld) [#/Vol] 0.06 10*3/uL Normal 0.00-0.44 [facility] Comment on above: Performed By: #### B LINE FISHER, CP, TROPI, CDP #### [address] [place], [place] [id number] Circuit Board Assembler: Sd Smith MD Eosinophils/100 WBC (Bld) 0 % Low 1-4 [facility] Comment on above: Performed By: #### B LINE FISHER, CP, TROPI, CDP #### [address] [place], [place] [id number] Circuit Board Assembler: Sd Smith MD Erythrocyte distribution width (RBC) [Ratio] 13.7 % Normal 11.8-14.4 [facility] Comment on above: Performed By: #### B LINE FISHER, CP, TROPI, CDP #### [address] [place], [facility]83 Circuit Board Assembler: Sd Smith MD Hematocrit (Bld) [Volume fraction] 36.9 % Normal 36.3-47.1 [facility] Comment on above: Performed By: #### B LINE FISHER, CP, TROPI, CDP #### [address] [place], [place] [address] Circuit Board Assembler: Sd Smith MD Hemoglobin (Bld) [Mass/Vol] 12.5 g/dL Normal 11.9-15.1 [facility] Comment on above: Performed By: #### B LINE FISHER, CP, TROPI, CDP #### [address] [place], [facility]83 Circuit [employer] Assembler: Sd Smith MD Immature granulocytes/100 WBC (Bld) 0 % Normal 0 [facility] Comment on above: Performed By: #### B LINE FISHER, CP, TROPI, CDP #### [address] [place], [place] [id number] Circuit Board Assembler: Sd Smith MD Lymphocytes (Bld) [#/Vol] 0.94 10*3/uL Low 1.10-3.70 [facility] Comment on above: Performed By: #### B LINE FISHER, CP, TROPI, CDP #### [facility] [address] [place], [place] [id number] Circuit Board Assembler: Sd Smith MD Lymphocytes/100 WBC (Bld) 7 % Low 24-43 [facility] Comment on above: Performed By: #### B LINE FISHER, CP, TROPI, CDP #### [place] [address] [place], [place] [id number] Circuit Board Assembler: Sd Smith MD MCH (RBC) [Entitic mass] 30.6 pg Normal 25.2-33.5 [facility] Comment on above: Performed By: #### B LINE FISHER, CP, TROPI, CDP #### [address] [place], [facility]26 ( Circuit Board Assembler: Sd Smith MD MCHC (RBC) [Mass/Vol] 33.9 g/dL Normal 28.4-34.8 [facility] Comment on above: Performed By: #### B LINE FISHER, CP, TROPI, CDP #### [address] [place], [facility]83 Circuit Board Assembler: Sd Smith MD MCV (RBC) [Entitic vol] 90.4 fL Normal 82.6-102.9 M [facility] Comment on above: Performed By: #### B LINE FISHER, CP, TROPI, CDP #### [address] [place] [address] Circuit Board Assembler: Sd Smith MD Monocytes (Bld) [#/Vol] 0.93 10*3/uL Normal 0.10-1.20 [facility] Comment on above: Performed By: #### B LINE FISHER, CP, TROPI, CDP #### [address] [place], [facility]83 Circuit Board Assembler: Sd Smith MD Monocytes/100 WBC (Bld) 7 % Normal 3-12 M [facility] Comment on above: Performed By: #### B LINE FISHER, CP, TROPI, CDP #### [facility] [address] [place], [place] [id number] Circuit Board Assembler: Sd Smith MD Neutrophil (Seg) 86 % High 36-65 [facility] Comment on above: Performed By: #### B LINE FISHER, CP, TROPI, CDP #### [facility] [address] [place] [address] Circuit Board Assembler: Sd Smith MD NRBC Automated 0.0 per 100 WBC Normal 0.0 [facility] Comment on above: Performed By: #### B LINE FISHER, CP, TROPI, CDP #### [place] [address] [place], [place] [id number] Circuit Board Assembler: Sd Smith MD Platelet mean volume (Bld) [Entitic vol] 10.3 fL Normal 8.1-13.5 [facility] Comment on above: Performed By: #### B LINE FISHER, CP, TROPI, CDP #### [address] [place], [place] [id number] (226 Circuit Board Assembler: Sd Smith MD Platelets (Bld) [#/Vol] 234 10*3/uL Normal 138-453 [facility] Comment on above: Performed By: #### B LINE FISHER, CP, TROPI, CDP #### [facility] [address] [place], [place] [id number] ([address] Circuit Board Assembler: Sd Smith MD RBC (Bld) [#/Vol] 4.08 10*6/uL Normal 3.95-5.11 [facility] Comment on above: Performed By: #### B LINE FISHER, CP, TROPI, CDP #### [facility] [address] [place], [place] [id number] Circuit Board Assembler: Sd Smith MD WBC (Bld) [#/Vol] 14.3 10*3/uL High 3.5-11.3 [facility] Comment on above: Performed By: #### B LINE FISHER, CP, TROPI, CDP #### [facility] [address] [place] [address] Circuit Board Assembler: Sd Smith MD Auto Diff Performed NOT REPORTED Normal [facility] Comment on above: Performed By: #### B LINE FISHER, CP, TROPI, CDP #### [facility] [address] [place] [address] Circuit Board Assembler: Sd Smith MD Platelet Estimate NOT REPORTED [facility] Comment on above: Performed By: #### B LINE FISHER, CP, TROPI, CDP #### [address] [place] [address] Circuit Board Assembler: Sd Smith MD RBC morphology finding Nom (Bld) NOT REPORTED Normal [facility] Comment on above: Performed By: #### B LINE FISHER, CP, TROPI, CDP #### [address] [place] [address] Circuit Board Assembler: Sd Smith MD WBC Morphology NOT REPORTED Normal [facility] Comment on above: Performed By: #### B LINE FISHER, CP, TROPI, CDP #### [facility] [address] [place] [address] [place] [address] Circuit Board Assembler: Sd Smith MD Comp Metabolic Profon 2020 (cont.) Normal [facility] Comment on above: Result Comment: Aver age GFR for 70 or more years old: 75 mL/min/1.73sq m Chronic Kidney Disease: <60 mL/min/1.73sq m Kidney failure: <15 mL/min/1.73sq m eGFR calculated using average adult body mass. Additional eGFR calculator available at: http://www.[employer]/multiple_crcl_2011.htm Performed By: #### B LINE FISHER, CP, TROPI, CDP #### [facility] [address] [place], [place] [address] [employer] Board Assembler: Sd Smith MD Albumin [Mass/Vol] 4.1 g/dL Normal 3.5-5.2 [facility] [place] Comment on above: Performed By: #### B LINE FISHER, CP, TROPI, CDP #### [address] [place], [place] [id number] [employer] As[employer]er: Sd Smith MD Albumin/Glob Ratio 1.4 Normal 1.0-2.5 [facility] [place] Comment on above: Performed By: #### B LINE FISHER, CP, TROPI, CDP #### [address] [place], [place] [id number] [employer] Board As[employer]er: Sd Smith MD Alkaline Phos 73 U/L Normal 35-104 [facility] Comment on above: Performed By: #### B LINE FISHER, CP, TROPI, CDP #### [address] [place], [place] [id number] [employer] Board As[employer]er: Sd Smith MD ALT [Catalytic activity/Vol] 13 U/L Normal 5-33 [facility] [place] Comment on above: Performed By: #### B LINE FISHER, CP, TROPI, CDP #### [address] [place], [place] [id number] [employer] Board Assembler: Sd Smith MD Anion gap [Moles/Vol] 16 mmol/L Normal 9-17 [facility] Comment on above: Performed By: #### B LINE FISHER, CP, TROPI, CDP #### [address] [place], [place] [id number] [employer] Board As[employer]er: Sd Smith MD AST [Catalytic activity/Vol] 19 U/L Normal <32 [facility] [place] Comment on above: Performed By: #### B LINE FISHER, CP, TROPI, CDP #### [address] [place], [place] 320[address]83 [employer] As[employer]er: Sd Smith MD Bilirubin [Mass/Vol] 0.32 mg/dL Normal 0.3-1.2 [facility] Comment on above: Performed By: #### B LINE FISHER, CP, TROPI, CDP #### [facility] [address] [place], [place] [id number] [employer] Board Assembler: Sd Smith MD BUN/CRE Ratio 20 Normal 9-20 [facility] Comment on above: Performed By: #### B LINE FISHER, CP, TROPI, CDP #### [place] [address] [place], [place] 2257483 Circuit Board Assembler: Sd Smith MD Calcium [Mass/Vol] 9.2 mg/dL Normal 8.6-10.4 [facility] [place] Comment on above: Performed By: #### B LINE FISHER, CP, TROPI, CDP #### [facility] [address] [place] [address] [place] [place], [place] [phone] [employer] Board Assembler: Sd Smith MD Chloride [Moles/Vol] 95 mmol/L Low 98-107 [facility] Comment on above: Performed By: #### B LINE FISHER, CP, TROPI, CDP #### [address] [place], [place] 6091283 [employer] Board Assembler: Sd Smith MD CO2 [Moles/Vol] 21 mmol/L Normal 20-31 [facility] Comment on above: Performed By: #### B LINE FISHER, CP, TROPI, CDP #### [facility] [address] [place] [address] [place] [place], [place] 1488483 [employer] Board Assembler: Sd Smith MD Creatinine [Mass/Vol] 0.75 mg/dL Normal 0.50-0.90 [facility] Comment on above: Performed By: #### B LINE FISHER, CP, TROPI, CDP #### [facility] [address] [place], [place] [id number] Circuit Board Assembler: Sd Smith MD GFR, Amer >60 Normal >60 [facility] Comment on above: Performed By: #### B LINE FISHER, CP, TROPI, CDP #### [facility] [address] [place], [place] [phone] Circuit Board Assembler: Sd Smith MD GFR,non Amer >60 Normal >60 [facility] Comment on above: Performed By: #### B LINE FISHER, CP, TROPI, CDP #### [facility] [address] [place], [place] 957[address]83 [employer] Assembler: Sd Smith MD Glucose [Mass/Vol] 168 mg/dL High 70-99 [facility] [place] Comment on above: Performed By: #### B LINE FISHER, CP, TROPI, CDP #### [facility] [address] [place] [address] Dr[address] [place], [place] 8931283 [employer] As[employer]er: Sd Smith MD Potassium [Moles/Vol] 3.9 mmol/L Normal 3.7-5.3 [facility] Comment on above: Performed By: #### B LINE FISHER, CP, TROPI, CDP #### [facility] [address] [place] [address] [place] [place], [place] [phone] [employer] Assembler: Sd Smith MD Protein [Mass/Vol] 7.0 g/dL Normal 6.4-8.3 [facility] [place] Comment on above: Performed By: #### B LINE FISHER, CP, TROPI, CDP #### [facility] [address] [place], [place] [phone] [employer] As[employer]er: Sd Smith MD Sodium [Moles/Vol] 132 mmol/L Low 135-144 [facility] [place] Comment on above: Performed By: #### B LINE FISHER, CP, TROPI, CDP #### [facility] [address] [place] [address] [place] [place], [place] [phone] Circuit [employer] Assembler: Sd Smith MD Staging: Normal [facility] [place] Comment on above: Result Comment: Stag e 1: Some kidney damage normal GFR Stage 2: Mild kidney damage GFR 60-89 Stage 3: Moderate kidney damage GFR 30-59 Stage 4: Severe kidney damage GFR 15-29 Stage 5: Severe kidney damage GFR <15 ESRD - chronic treatment by dialysis or transplant Performed By: #### B LINE FISHER, CP, TROPI, CDP #### [facility] [address] [place] [address] Circuit Board Assembler: Sd Smith MD Urea nitrogen [Mass/Vol] 15 mg/dL Normal 8- [facility] [place] Comment on above: Performed By: #### B LINE FISHER, CP, TROPI, CDP #### [facility] [address] [place] [address] Circuit Board Assembler: Sd Smith MD Comprehensive Metabolic Pane lOrdered By: Judith Love on 03-13-2021 Albumin [Mass/Vol] 4.1 g/dL 3.5 - 5.2 g/dL [employer] Phone: Albumin/Globulin [Mass ratio] 1.4 {ratio} [employer] Phone: ALP (Bld) [Catalytic activity/Vol] 73 U/L 35 - 104 U/L [employer] Phone: ALT [Catalytic activity/Vol] 13 U/L 5 - 33 U/L [facility] Phone: Anion gap [Moles/Vol] 16 mmol/L 9 - 17 mmol/L [facility] Phone: AST [Catalytic activity/Vol] 19 U/L <32 [employer] Phone: Bilirubin [Mass/Vol] 0.32 mg/dL 0.3 - 1 .2 mg/dL [employer] Phone: Calcium [Mass/Vol] 9.2 mg/dL 8.6 - 10. 4 mg/dL [employer] Phone: Chloride [Moles/Vol] 95 mmol/L Low 98 - 10 7 mmol/L [employer] Phone: CO2 [Moles/Vol] 21 mmol/L 20 - 31 mmol/L [employer] Phone: Creatinine [Mass/Vol] 0.75 mg/dL 0.50 - 0.90 mg/dL [employer] Phone: Free PSA/Total PSA [Mass fraction] 7.0 g/dL 6.4 - 8.3 g/dL [employer] Phone: GFR >60 >60 mL/min [employer] Phone: GFR Non- >60 >60 mL/min [employer] Phone: Glucose [Mass/Vol] 168 mg/dL High 70 - 99 mg/dL [employer] Phone: Interpretation and review of laboratory results Abnormal [employer] Phone: Potassium [Moles/Vol] 3.9 mmol/L 3.7 - 5.3 mmol/L [employer] Phone: Sodium [Moles/Vol] 132 mmol/L Low 135 - 144 mmol/L [employer] Phone: Urea nitrogen (BldV) [Mass/Vol] 15 mg/dL 8 - 23 mg/dL [employer] Phone: Urea nitrogen/Creatinine (Bld) [Mass ratio] 20 [employer] Phone: Laboratory - Chemistry and C hemistry - challengeOrdered By: Judith Love on 03-13-2021 GFR/1.73 sq M.predicted MDRD (S/P/Bld) [Vol rate/Area] [employer] Phone: Comment on above: Average GFR for 70 o r more years old: 75 mL/min/1.73sq m Chronic Kidney Disease: <60 mL/min/1.73sq m Kidney failure: <15 mL/min/1.73sq m eGFR calculated using average adult body mass. Additional eGFR calculator available at: http://www.[employer]/multiple_crcl_2012.htm Stage 1: Some kidney damage normal GFR Stage 2: Mild kidney damage GFR 60-89 Stage 3: Moderate kidney damage GFR 30-59 Stage 4: Severe kidney damage GFR 15-29 Stage 5: Severe kidney damage GFR <15 ESRD - chronic treatment by dialysis or transplant Microscopic UrinalysisOrdere d By: Judith Love on 03-13-2021 - [employer] Work Phone: Amorphous, UA NOT REPORTED None [facility] Work Phone: Bacteria, UA TRACE Abnormal None [facility] Work Phone: Casts UA NOT REPORTED /LPF [facility] Work Phone: Crystals, UA NOT REPORTED None /HPF [facility] Work Phone: Epithelial Cells UA 0 TO 2 [facility] Work Phone: Interpretation and review of laboratory results Abnormal [facility] Work Phone: Mucus, UA NOT REPORTED None [facility] Work Phone: Other Observations UA NOT REPORTED NOT REQ. [facility] Work Phone: RBC, UA 0 TO 2 [facility] Work Phone: Renal Epithelial, UA NOT REPORTED 0 /HPF [facility] Work Phone: Trichomonas, UA NOT REPORTED None [facility] Work Phone: WBC, UA 2 TO 5 [facility] Work Phone: Yeast, UA NOT REPORTED None [facility] Work Phone: [facility] Work Phone: No Panel InformationOrdered By: Judith Love on 03-13-2021 [facility] Work Phone: Troponinon 10-18-2021 Troponin, High Sens 8 ng/L Normal 0-14 [facility] [place] Comment on above: Result Comment: High Sensitivity Troponin values cannot be compared with other Troponin methodologies. Patients with high levels of Biotin oral intake (i.e >5mg/day) may have falsely decreased Troponin levels. Samples collected within 8 hours of biotin intake may require additional information for diagnosis. Performed By: #### B LINE FISHER, CP, TROPI, CDP #### [facility] [address] [place] [address] [place], [place] [phone] Circuit Board Assembler: Sd Smith MD Troponin Interp. NOT REPORTED Normal [facility] [place] Comment on above: Performed By: #### B LINE FISHER, CP, TROPI, CDP #### [address] [place] [address] Circuit Board Assembler: Sd Smith MD Troponin T NOT REPORTED Normal <0.03 [facility] [place] Comment on above: Performed By: #### B LINE FISHER, CP, TROPI, CDP #### [facility] [address] [place] [address] [place] [address] Circuit Board Assembler: Sd Smith MD TroponinOrdered By: Judith crystal on 03-13-2021 Troponin Interp NOT REPORTED [facility] Work Phone: Troponin T NOT REPORTED <0.03 ng/mL [facility] Work Phone: Troponin, High Sensitivity 8 ng/L 0 - 14 ng/L [facility] Work Phone: Comment on above: High Sensitivity Troponin values cannot be compared with other Troponin methodologies. Patients with high levels of Biotin oral intake (i.e >5mg/day) may have falsely decreased Troponin levels. Samples collected within 8 hours of biotin intake may require additional information for diagnosis. UA w/Reflex Cultureon 2020 Bilirubin, SemiQt,Ur Negative Normal NEG [facility] Comment on above: Performed By: #### U MICAO, UAX #### [facility] [address] [place] [address] [place] [address] Circuit Board Assembler: Sd Smith MD Blood, Urine Negative Normal NEG [facility] [place] Comment on above: Performed By: #### U MICAO, UAX #### [facility] [address] [place], [place] [phone] Circuit Board Assembler: Sd Smith MD Clarity (U) Clear Normal CLEAR [facility] [place] Comment on above: Performed By: #### U MICAO, UAX #### [facility] [address] [place], [place] 625[address]83 Circuit Board Assembler: Sd Smith MD Color (U) Yellow Normal YEL [facility] [place] Comment on above: Performed By: #### U MICAO, UAX #### [facility] [address] [place], [place] [phone] Circuit Board Assembler: Sd Smith MD Glucose Ql (U) Negative Normal NEG [facility] Comment on above: Performed By: #### U MICAO, UAX #### [facility] [address] [place] [address] [place]. [place], [place] [phone] Circuit Board Assembler: Sd Smith MD Ketones Ql (U) Negative Normal NEG [facility] Comment on above: Performed By: #### U MICAO, UAX #### [facility] [address] [place], [place] [phone] Circuit Board Assembler: Sd Smith MD Leukocyte esterase Test strip Ql (U) SMALL Abnormal NEG [facility] [place] Comment on above: Performed By: #### U MICAO, UAX #### [facility] [address] [place], [place] [phone] Circuit Board Assembler: Sd Smith MD Nitrite,Ur Negative Normal NEG [facility] [place] Comment on above: Performed By: #### U MICAO, UAX #### [facility] [address] [place], [place] [phone] Circuit Board Assembler: Sd Smith MD PH,Ur 7.0 Normal 5.0-9.0 [facility] [place] Comment on above: Performed By: #### U MICAO, UAX #### [facility] [address] [place], [place] 756[address]83 Circuit Board Assembler: Sd Smith MD Protein Ql (U) Negative Normal NEG [facility] Comment on above: Performed By: #### U MICAO, UAX #### [facility] [address] [place] [address] Circuit Board Assembler: Sd Smith MD Spec. [place],Ur 1.015 Normal 1.010-1.020 [facility] Comment on above: Performed By: #### U MICAO, UAX #### [address] [place], [place] 9[address]83 Circuit Board Assembler: Sd Smith MD Urobilinogen,Ur Normal Normal NORM [facility] Comment on above: Performed By: #### U MICAO, UAX #### [facility] [address] [place] [address] [place] [address] Circuit Board Assembler: Sd Smith MD Comment NOT REPORTED Normal [facility] [place] Comment on above: Performed By: #### U MICAO, UAX #### [address] [place], [place] 213[address]83 Circuit Board Assembler: Sd Smith MD Urinalysis Reflex to Culture Ordered By: Judith Love on 03-13-2021 Bilirubin Urine Negative NEGATIVE [facility] Work Phone: Color, UA Yellow Yellow [facility] Work Phone: Glucose, Ur Negative NEGATIVE [facility] Work Phone: Interpretation and review of laboratory results Abnormal [facility] Work Phone: Ketones Ql (U) Negative NEGATIVE [facility] Work Phone: Leukocyte esterase Test strip Ql (U) SMALL Abnormal NEGATIVE [facility] Work Phone: Nitrite, Urine Negative NEGATIVE [facility] Work Phone: pH, UA 7.0 [facility] Work Phone: Protein, UA Negative NEGATIVE [facility] Work Phone: Specific [place], UA 1.015 [facility] Work Phone: Turbidity UA Clear Clear [facility] Work Phone: Urinalysis Comments NOT REPORTED [facility] Work Phone: Urine Hgb Negative NEGATIVE [facility] Work Phone: Urobilinogen, Urine Normal Normal [facility] Work Phone: [facility] Work Phone: Urinalysis,Microon 1 ----- Normal [facility] [place] Comment on above: Performed By: #### U MICAO, UAX #### [facility] [address] [place] [address] Circuit Board Assembler: Sd Smith MD Bacteria TRACE Abnormal NONE [facility] [place] Comment on above: Performed By: #### U MICAO, UAX #### [facility] [address] [place] [address] Circuit Board Assembler: Sd Smith MD Epithelial cells LM Ql (Urine sed) 0 TO 2 Normal 0-25 [facility] [place] Comment on above: Performed By: #### U MICAO, UAX #### [facility] [address] [place] [address] Circuit Board Assembler: Sd Smith MD Urine RBC's 0 TO 2 Normal 0-2 [facility] [place] Comment on above: Performed By: #### U MICAO, UAX #### [facility] [address] [place] [address] Circuit Board Assembler: Sd Smith MD Urine WBC's 2 TO 5 Normal 0-5 [facility] [place] Comment on above: Performed By: #### U MICAO, UAX #### [facility] [address] [place] [address] Circuit Board Assembler: Sd Smith MD Amorphous sediment LM Ql (Urine sed) NOT REPORTED Normal [facility] Comment on above: Performed By: #### U MICAO, UAX #### [facility] [address] [place] [address] Circuit Board Assembler: Sd Smith MD Casts NOT REPORTED Normal [facility] [place] Comment on above: Performed By: #### U MICAO, UAX #### [facility] [address] [place] [address] Circuit Board Assembler: Sd Smith MD Crystals LM Nom (Urine sed) NOT REPORTED Normal [facility] Comment on above: Performed By: #### U MICAO, UAX #### [facility] [address] [place] [address] Circuit Board Assembler: Sd Smith MD Epithelial, Renal NOT REPORTED Normal 0 [facility] [place] Comment on above: Performed By: #### U MICAO, UAX #### [facility] [address] [place] [address] Circuit Board Assembler: Sd Smith MD Mucus Strands NOT REPORTED Normal [facility] Comment on above: Performed By: #### U MICAO, UAX #### [facility] [address] [place] [address] Circuit Board Assembler: Sd Smith MD Other Observations NOT REPORTED Normal NREQ [facility] Comment on above: Performed By: #### U MICAO, UAX #### [facility] [address] [place] [address] Circuit Board Assembler: Sd Smith MD Trichomonas NOT REPORTED Normal [facility] Comment on above: Performed By: #### U MICAO, UAX #### [facility] [address] [place] [address] Circuit Board Assembler: Sd Smith MD Yeast NOT REPORTED Normal NONE [facility] [place] Comment on above: Performed By: #### U BRIAO, UAX #### [facility] [address] [place] [address] Circuit Board Assembler: Sd Smith MD XR CHEST PORTABLEon 03-13-20 XR CHEST PORTABLE EXAMINATION: ONE XRAY VIEW OF THE CHEST 03/13/2021 2:04 pm COMPARISON: None. HISTORY: ORDERING SYSTEM PROVIDED HISTORY: syncope TECHNOLOGIST PROVIDED HISTORY: syncope FINDINGS: Top-normal cardiac size. COPD changes. Minimal atelectasis right lung base. No pneumothorax. No definite consolidation or congestion. Significant osteopenic changes and degenerative changes noted in the bony structures. IMPRESSION: No acute finding in the chest. COPD changes Interpreted by: Angela Chau MD Signed by: Angela Chau MD 03/13/21 Final result Normal [facility] [place] XR CHEST PORTABLEOrdered By: Judith Love on 03-13-2021 No acute finding in the chest. COPD changes [employer] Phone: EXAMINATION: ONE XRA Y VIEW OF THE CHEST 03/13/2021 2:04 pm COMPARISON: None. HISTORY: ORDERING SYSTEM PROVIDED HISTORY: syncope TECHNOLOGIST PROVIDED HISTORY: syncope FINDINGS: Top-normal cardiac size. COPD changes. Minimal atelectasis right lung base. No pneumothorax. No definite consolidation or congestion. Significant osteopenic changes and degenerative changes noted in the bony structures. [facility] Phone: Arvind, Mhpn Incoming Radiant Results From [employer] - 03/13/2021 2:19 PM EDT EXAMINATION: ONE XRAY VIEW OF THE CHEST 03/13/2021 2:04 pm COMPARISON: None. HISTORY: ORDERING SYSTEM PROVIDED HISTORY: syncope TECHNOLOGIST PROVIDED HISTORY: syncope FINDINGS: Top-normal cardiac size. COPD changes. Minimal atelectasis right lung base. No pneumothorax. No definite consolidation or congestion. Significant osteopenic changes and degenerative changes noted in the bony structures. IMPRESSION: No acute finding in the chest. COPD changes [facility] Work Phone: [employer] Work Phone: Vital Signs Date Time Vital Sign Value Performing Clinician Facility 12-26-2023 14:43-0400 Body height 160.[address] [facility] 12-26-2023 14:43-0400 Body mass index (BMI) [Ratio] 24.8 kg/m2 [facility] 12-26-2023 14:43-0400 Body weight 63.[address] [facility] 12-26-2023 14:43-0400 Diastolic blood pressure 79 mm[Hg] [facility] 12-26-2023 14:43-0400 Heart rate 72 /min [facility] 12-26-2023 14:43-0400 Systolic blood pressure 125 mm[Hg] [facility] 10-15-2023 15:12-0400 Body height 160.[address] [facility] 10-15-2023 15:12-0400 Body mass index (BMI) [Ratio] 25.1 kg/m2 [facility] 10-15-2023 15:12-0400 Body weight 64.[address] [facility] 10-15-2023 15:12-0400 Diastolic blood pressure 84 mm[Hg] [facility] 10-15-2023 15:12-0400 Heart rate 62 /min [facility] 10-15-2023 15:12-0400 Systolic blood pressure 160 mm[Hg] [facility] 08-06-2023 12:08-0400 Body height 160.[address] [facility] 08-06-2023 11:22-0400 Body mass index (BMI) [Ratio] 25.5 kg/m2 [facility] 08-06-2023 11:22-0400 Body weight 65.[address] [facility] 08-06-2023 11:22-0400 Diastolic blood pressure 82 mm[Hg] [facility] 08-06-2023 11:22-0400 Heart rate 69 /min [facility] 08-06-2023 11:22-0400 Systolic blood pressure 142 mm[Hg] [facility] 06-27-2023 14:00-0500 Body height 160.02 cm Diane Angelo Other [employer] Other 06-27-2023 14:00-0500 Body mass index (BMI) [Ratio] 25.51 kg/m2 Diane Angelo Other [employer] Other 06-27-2023 14:00-0500 Body weight 65.32 kg Diane Angelo Other [employer] Other 06-27-2023 14:00-0500 Diastolic blood pressure 82 mm[Hg] Diane Angelo Other [employer] Other 06-27-2023 14:00-0500 Systolic blood pressure 135 mm[Hg] Diane Angelo Other [employer] Other 05-22-2023 11:15-0500 Body height 160.02 cm Diane Angelo Other [employer] Other 05-22-2023 11:15-0500 Body mass index (BMI) [Ratio] 25.15 kg/m2 Diane Angelo Other [employer] Other 05-22-2023 11:15-0500 Body weight 64.41 kg Diane Angelo Other [employer] Other 05-22-2023 11:15-0500 Diastolic blood pressure 88 mm[Hg] Diane Angelo Other [employer] Other 05-22-2023 11:15-0500 Systolic blood pressure 142 mm[Hg] Diane Angelo Other [employer] Other 08-13-2022 16:00-0400 Body height 162.56 cm Diane Angelo Other [employer] Other 08-13-2022 16:00-0400 Body mass index (BMI) [Ratio] 23.69 kg/m2 Diane Angelo Other [employer] Other 08-13-2022 16:00-0400 Body weight 62.6 kg Diane Angelo Other [employer] Other 08-13-2022 16:00-0400 Diastolic blood pressure 74 mm[Hg] Diane Angelo Other [employer] Other 08-13-2022 16:00-0400 SaO2% (BldA) [Mass fraction] 97 % Diane Angelo Other [employer] Other 08-13-2022 16:00-0400 Systolic blood pressure 124 mm[Hg] Diane Angelo Other [employer] Other 11-06-2021 15:38-0400 Diastolic blood pressure 81 mm[Hg] Diane Angelo Work Phone: [employer] Work Phone: 11-06-2021 15:38-0400 Systolic blood pressure 132 mm[Hg] Diane Angelo Work Phone: [employer] Work Phone: 11-06-2021 15:19-0400 Body height 162.56 cm Diane Angelo Work Phone: [employer] [place] [employer] DO Work Phone: 11-06-2021 15:19-0400 Body mass index (BMI) [Ratio] 23.17 kg/m2 Diane Angelo Work Phone: [facility] [facility] Work Phone: 11-06-2021 15:19-0400 Body surface area Derived from formula 1.66 m2 Diane Angelo Work Phone: [facility] [address] DO Work Phone: 11-06-2021 15:19-0400 Body weight 61.24 kg Diane Angelo Work Phone: [facility] [address] DO Work Phone: 11-06-2021 15:19-0400 Diastolic blood pressure 84 mm[Hg] Diane Angelo Work Phone: [facility] [address] DO Work Phone: 11-06-2021 15:19-0400 Heart rate 76 /min Diane Angelo Work Phone: [facility] [address] DO Work Phone: 11-06-2021 15:19-0400 Systolic blood pressure 142 mm[Hg] Diane Angelo Work Phone: [facility] [address] DO Work Phone: 03-28-2021 13:11-0400 Body height 162.56 cm Diane Angelo Work Phone: [facility] [address] DO Work Phone: 03-28-2021 13:11-0400 Body mass index (BMI) [Ratio] 21.8 kg/m2 Diane Angelo Work Phone: [facility] DO Work Phone: 03-28-2021 13:11-0400 Body surface area Derived from formula 1.61 m2 Diane Angelo Work Phone: [facility] [address] DO Work Phone: 03-28-2021 13:11-0400 Body weight 57.61 kg Diane Angelo Work Phone: [facility] [address] DO Work Phone: 03-28-2021 13:11-0400 Diastolic blood pressure 88 mm[Hg] Diane Angelo Work Phone: [facility] [address] DO Work Phone: 03-28-2021 13:11-0400 Heart rate 73 /min Diane Angelo Work Phone: [facility] [address] DO Work Phone: 03-28-2021 13:11-0400 Systolic blood pressure 158 mm[Hg] Diane Angelo Work Phone: [facility] [address] DO Work Phone: 03-28-2021 13:07-0400 Body height 162.56 cm Diane Angelo Work Phone: [facility] [address] DO Work Phone: 03-28-2021 13:07-0400 Body mass index (BMI) [Ratio] 21.8 kg/m2 Diane Angelo Work Phone: [facility] [address] DO Work Phone: 03-28-2021 13:07-0400 Body surface area Derived from formula 1.61 m2 Diane Angelo Work Phone: [facility] [address] DO Work Phone: 03-28-2021 13:07-0400 Body weight 57.61 kg Diane Angelo Work Phone: [facility] [address] DO Work Phone: 03-28-2021 13:07-0400 Diastolic blood pressure 80 mm[Hg] Diane Angelo Work Phone: [facility] DO Work Phone: 03-28-2021 13:07-0400 Heart rate 73 /min Diane Angelo Work Phone: [facility] [address] DO Work Phone: 03-28-2021 13:07-0400 Systolic blood pressure 160 mm[Hg] Diane Angelo Work Phone: [facility] DO Work Phone: 03-16-2021 00:00-0400 66 1 Diane Angelo Work Phone: [facility] [address] [place] Work Phone: Comment on above: [id number] 03-13-2021 15:15-0400 Diastolic blood pressure 90 mm[Hg] Demian Cardoza MD Work Phone: [employer] Work Phone: 03-13-2021 15:15-0400 Heart rate 86 /min Demian Cardoza MD Work Phone: [employer] Work Phone: 03-13-2021 15:15-0400 Respiratory rate 17 /min Demian Cardoza MD Work Phone: [employer] Work Phone: 03-13-2021 15:15-0400 Systolic blood pressure 127 mm[Hg] Demian Cardoza MD Work Phone: [employer] Work Phone: 03-13-2021 14:30-0400 SaO2% (BldA) [Mass fraction] 98 % Demian Cardoza MD Work Phone: [employer] Work Phone: 03-13-2021 12:54-0400 Body height 162.6 cm Demian Cardoza MD Work Phone: [employer] Work Phone: 03-13-2021 12:54-0400 Body mass index (BMI) [Ratio] 22.31 kg/m2 Demian Cardoza MD Work Phone: [employer] Work Phone: 03-13-2021 12:54-0400 Body temperature 97.81 [degF] Demian Cardoza MD Work Phone: [employer] Work Phone: 03-13-2021 12:54-0400 Body weight 58.97 kg Demian Cardoza MD Work Phone: [employer] Work Phone: Encounters Encounter Date Encounter Type Care Provider Facility Start: 12-26-2023 End: 12-26-2023 ambulatory [facility] Work Phone: Start: 12-26-2023 End: 12-26-2023 Patient encounter procedure [facility] Work Phone: Start: 10-16-2023 Patient encounter procedure [facility] Start: 10-15-2023 End: 10-15-2023 ambulatory [facility] Work Phone: Start: 10-15-2023 End: 10-15-2023 Patient encounter procedure [facility] Work Phone: Start: 08-14-2023 End: 08-15-2023 ambulatory Diane Angelo MD Facility:[facility] Start: 08-06-2023 End: 08-06-2023 Patient encounter procedure [facility] Work Phone: Start: 06-27-2023 End: 06-27-2023 ambulatory Diane Angelo Other [employer] Other Start: 06-27-2023 Office outpatient vi sit 15 minutes Diane Angelo [facility] Start: 06-12-2023 End: 06-12-2023 ambulatory Diane Angelo Other [employer] Other Start: 06-12-2023 Telephone encounter Diane Angelo [facility] Start: 06-10-2023 End: 06-10-2023 ambulatory Diane Angelo Other [employer] Other Start: 06-10-2023 Telephone encounter Diane Angelo [facility] Start: 05-22-2023 End: 05-22-2023 ambulatory Diaen Angelo Other [employer] Other Start: 05-22-2023 Office outpatient vi sit 15 minutes Diane Nahid [facility] Start: 04-16-2023 End: 04-16-2023 ambulatory Diane Nahid Other [employer] Other Start: 04-16-2023 Telephone encounter Diane Angelo [facility] Start: 04-01-2023 End: 04-01-2023 ambulatory Diane Nahid Other [employer] Other Start: 04-01-2023 Telephone encounter Diane Angelo [facility] Start: 01-21-2023 End: 01-21-2023 ambulatory Diane Angelo Other [employer] Other Start: 01-21-2023 Telephone encounter Diane Angelo [facility] Start: 10-13-2022 End: 10-14-2022 ambulatory Tray Martin DO Facility:[facility] Start: 10-12-2022 End: 10-13-2022 Emergency department patient visit Harjit Lantigua MD Facility:[facility] Start: 08-27-2022 End: 08-27-2022 ambulatory Diane Angelo Other [employer] Other Start: 08-27-2022 Telephone encounter Diane Angelo [facility] Start: 08-13-2022 End: 08-13-2022 ambulatory Diane Nahid Other [employer] Other Start: 08-13-2022 Office outpatient vi sit 15 minutes Diane Angelo [facility] Start: 07-26-2022 End: 07-26-2022 ambulatory Diane Angelo Other [employer] Other Start: 07-26-2022 Telephone encounter Diane Angelo [facility] Start: 05-24-2022 Adult health examination Gini Angelo Other [employer] Other Start: 05-24-2022 Encounter for genera l adult medical examination without abnormal findings Diane Angelo Other [employer] Other Start: 01-15-2022 End: 01-16-[address] DIANE ANGELO Facility:[facility] Start: 11-15-2021 End: 11-16-[address] DIANE ANGELO Facility:[facility] Start: 11-06-2021 Office outpatient vi sit 25 minutes Diane Angelo Work Phone: [facility] [address] DO Work Phone: Start: 10-27-[address] ALEXANDER Katz ty:[facility] Start: 09-08-2021 End: 09-09-[address] DIANE ANGELO Facility:[facility] Start: 08-10-2021 End: 08-11-[address] CROWE LISTED REQUEST Facility:[facility] Start: 05-01-2021 Chart Update Diane Angelo Work Phone: [facility] [address] [place] Work Phone: Start: 04-25-2021 Patient encounter procedure Diane Angelo Work Phone: [facility] [address] [place] Work Phone: Start: 04-03-2021 AUDIT Diane Angelo Work Phone: [facility] [address] [place] Work Phone: Start: 03-28-2021 Office consultation new/estab patient 60 min Diane Angelo Work Phone: [facility] [address] DO Work Phone: Start: 03-16-2021 End: 03-17-[address] DIANE ANGELO Facility: Start: 03-13-2021 End: 03-13-2021 Emergency department patient visit DEMIAN CARDOZA [facility] Start: 03-13-2021 End: 03-13-2021 Emergency department patient visit Demian Cardoza MD Work Phone: [facility] ED Comment on above: Vasovagal syncope (P rimary Dx) Procedures Date Procedure Procedure Detail Performing Clinician Start: 03-13-2021 Urinalysis microscopic only [employer] Work Phone: Start: 03-13-2021 Urnls dip stick/tabl et rgnt auto w/o microscopy [employer] Work Phone: Start: 03-13-2021 Radiologic exam ches t single view [employer] Work Phone: Start: 03-13-2021 Comprehensive metabo lic panel [employer] Work Phone: Start: 03-13-2021 Ecg routine ecg w/le ast 12 lds w/i&r [employer] Work Phone: Start: 05-07-2018 Viral screening Diane Angelo Other Start: 10-04-2014 Screening mammography Ema destiny Angelo Other Start: 10-02-2013 General examination of patient Diane Nahid Other Colonoscopy Diane Delphine Nahid Work Phone: Depression screening Diane Angelo Other Ligation of fallopian tube [employer] Delphine Angelo Work Phone: Screening for malign ant neoplasm of breast Diane Nahid Other Plan of Treatment Date Care Activity Detail Author Start: 04-25-2021 EVENT MARIA ELENA, Provider: MARCY URENA UTILIZATION REVIEW NURSE 1,[id number], Status: Pen, Time: 10:45 AM EVENT MARIA ELENA, Provider: MARCY [id number] UTILIZATION REVIEW NURSE 1,[id number], Status: Pen, Time: 10:45 AM [facility] DO Work Phone: Start: 04-25-2021 CAROTID, Provider: BARBARA [facility] ULTRASOUND 01,[id number], Status: Pen, Time: 9:45 AM CAROTID, Provider: [facility]BAR[facility] ULTRASOUND 01,[id number], Status: Pen, Time: 9:45 AM [facility] Work Phone: Start: 01-25-2021 Influenza vaccination Flu vaccine (#1) [employer] Phone: Start: 2011 Pneumococcal 65+ years Vaccine (1 of 1 - PPSV23) Pneumococcal 65+ years Vaccine (1 of 1 - PPSV23) [employer] Phone: Start: 2001 Screening for osteoporosis DEXA (modify frequency per FRAX score) [employer] Phone: Start: 1996 Screening for malignant neoplasm of breast Breast cancer screen [employer] Phone: Start: 1996 Shingles Vaccine (1 of 2) Shingles Vaccine (1 of 2) [employer] Phone: Start: 1991 Screening for malignant neoplasm of colon Colon cancer screen colonoscopy [employer] Phone: Start: 1986 Lipid panel Lipid screen [employer] Phone: Start: 1965 DTaP/Tdap/Td vaccine (1 - Tdap) DTaP/Tdap/Td vaccine (1 - Tdap) [employer] Phone: Start: 1958 COVID-19 Vaccine (1) COVID-19 Vaccine (1) [employer] Phone: Start: 1945 Hepatitis C screening Hepatitis C screen [facility] Phone: Ankle brachial press ure index [facility] EKG 12 Lead EKG 12 Lead ECG STAT 03/13/2021 1:02 PM EDT [employer] Phone: [facility] Immunizations Immunization Date Immunization Notes Care Provider Fa cility 04-05-2017 pneumococcal conjuga te vaccine, 13 valent Diane Angelo Work Phone: [facility] 04-05-2017 pneumococcal Conjuga te, unspecified formulation; Translations: [Need for prophylactic vaccination against Streptococcus pneumoniae (pneumococcus)] Diane Angelo Other [employer] Other 10-05-2016 diphtheria, tetanus toxoids and acellular pertussis vaccine, unspecified formulation Diane Angelo Other [facility] Payers Date Payer Category Payer Medicare 2022 Unknown 1958 Medicare [id number] 1959 Private Health Insurance [id number] 1959 Self-pay [id number] 1945 Unknown [id number] 2.16.8 [id number] 1945 Unknown [id number] 2.16.84 [id number] 1945 Unknown [id number] 2.16.84 [id number] 1946 Unknown [id number] 2.16.84 [id number] 1946 Unknown [id number] 2.16.84 [id number] 1946 Unknown [id number] 2.16.84 [id number] 1946 Unknown [id number] 2.16. [id number] 1945 Unknown [id number] 2.16. [id number] 1945 Unknown [id number] 2.16. [id number] Self-pay Self Pay [id number] Unknown [id number] 2.16.84 [id number] Unknown [id number] 2.16.8 [id number] Social History Date Type Detail Facility Start: 06-03-2017 End: 03-13-2021 Tobacco smoking status [facility] Never smoker [facility] Start: 03-13-2021 Tobacco use and exposure Never used [employer] Start: 1945 Sex Assigned At Not on file [facility] [employer] Work Phone: Exposure to SARS-CoV-2 (event) Not sure [employer] Caffeine use Caffeine use [place] [address] DO Work Phone: Comment on above: COFFEE 2 CUPS DAILY; Sex Assigned At Sex Assigned At Bir th [employer] Other Start: 1945 Sex Assigned At Female F [facility] Clinical Notes 04-25-2021 to 06-27-2023 Note Date & Type Note Facility 06-27-2023 Evaluation note Encounter Date Diagnosis Assessment Notes Jun, Bilateral impacted cerumen (ICD-10 - H61.23) Bilateral cerumen removed w water pick successfully - pt tolerated well. [place] [employer] Other 01-17-2024 Evaluation note* Encounter Date Diagnosis Assessment Notes Treatment Notes Treatment Clinical Notes May, Essential (primary) hypertension (ICD-10 - I10) May, Lumbar and sacral osteoarthritis (ICD-10 - M47.817) [employer] Other 12-27-2023 Evaluation note* Encounter Date Diagnosis Assessment Notes Treatment Notes Treatment Clinical Notes Apr, Essential (primary) hypertension (ICD-10 - I10) Start med. Watch salt. Exercise regulary. Call in 2-3 weeks w home bp readings. [employer] Other 11-06-2023 Evaluation note* Encounter Date Diagnosis Assessment Notes Treatment Notes Treatment Clinical Notes Mar, Hyponatremia (ICD-10 - E87.1) Mar, Elevated glucose (ICD-10 - R73.09) [employer] Other 03-20-2023 Evaluation note* Encounter Date Diagnosis Assessment Notes Treatment Notes Treatment Clinical Notes Jul, GERD without esophagitis (ICD-10 - K21.9) Offered GI referral for likely EGD to an office in [facility]. She would prefer to restart med and evaluate her results again. Will take med for 2 months this time. Will then call if symptoms resume and will get a referral at that time. Jul, Left carotid stenosis (ICD-10 - I65.22) Found report from 03/2021. Reordered carotid US and gave previous report to pt to have radiologist review when her US is done in [place]. [employer] Other 11-30-2021 NoteReason For Visit Indication: Syncope Procedure: Patient underwent 30-day event monitor. Baseline rhythm is normal sinus rhythm. During the monitoring. No symptoms were arrhythmia were observed or reported. Conclusion 1. Normal sinus rhythm 2. No arrhythmia 3. 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 Event Monitor: INGRID is here for the application of a 30 day event monitor in office., Diagnosis: syncope Ordering Physician: Dr. Tammy Celis MD Monitor number [id number] applied. Holter monitor printed and placed on Dr. Tammy Celis MD desk to dictate. Diagnosis/Problems Assessed Syncope (780.2) (R55) Signatures Electronically signed by : Tammy Celis MD; Jun 01 2021 9:04PM EST (Author) [employer] note* Diagnosis Vasovagal syncope- Primary Syncope and collapse documented in this encounter [employer] Work Phone: evaluation [facility]No [facility] [employer] Other Evaluation note* Diagnosis Onset Date Resolution Status Decreased pedal pulses acute Elevated glucose acute Essential (primary) hypertension acute Fatigue acute Vitamin D deficiency acute [facility] Work Phone: Evaluation note* Diagnosis Onset Date Resolution Status Elevated glucose acute Essential (primary) hypertension acute Fatigue acute Medicare annual wellness visit, subsequent acute Vitamin D deficiency acute Hyponatremia acute [facility] Work Phone: History general Narrative - Reported* Type Description Date Medical History open angle glaucoma Medical History syncope and collapse Medical History seborrheic keratosis Medical History DVT right lower extremity Medical History benign essential tremor Medical History hyponatremia Surgical History BTL 1973 Surgical History colonoscopy Hospitalization History SEE SURGICAL HX [facility] [employer] Other History of Present illness Narrative* Patient is here for follow-up to the management for recent evaluation for syncope, and recent finding of carotid disease. Patient underwent work-up recently. Her 30-day event monitor failed to demonstrate any arrhythmia. Her carotid Doppler showed moderate left carotid disease. She reports no further symptoms since I advised her to increase her fluid and salt intake. She reports she developed some lower extremity edema and was diagnosed with superficial lower extremity DVT recently result not available to me * Assessment * 1. Syncope I suspect likely due to transient hypotension or bradycardia. No recurrence since she was evaluated. She continues to maintain high fluid intake. Her cardiac work-up noted and reviewed with her including her event monitor and carotid Doppler * 2. Essential tremor * 3. Symptoms of anxiety and depression * 4. Moderate left carotid disease * 5. Newly diagnosed lower extremity superficial DVT started on Eliquis * 6. Mild pulmonary hypertension noted on prior * Plan * 1. I advised the patient to increase her fluid intake to 12 cups a day and have sodium intake to 10g a day * 2. I advised her to change her position gradually and to monitor her blood pressure * 3. I reviewed the results of her carotid and echo with her * 4. I low-dose aspirin 81 mg twice weekly while on Eliquis. And I told her if she quit taking Eliquis as planned in 3 to 6 months she should continue with aspirin 81 mg daily * 5. I recommended atorvastatin 10 mg once daily in view of carotid disease * 6. I advised her to notify me change in cardiac status or symptoms * 7. The patient requested that she will follow-up with us on an as-needed basis and will continue her long-term follow-up with her PCP because of difficulty with transportation [facility] Work Phone: Hospital Discharge instructions* Attachments The following attachments cannot be sent through Care Everywhere. * Vasovagal Syncope (Norwegian) documented in this [facility] [employer] Phone: reason for visit Narrative* Indication: Syncope * Procedure: Patient underwent 30-day event monitor. Baseline rhythm is normal sinus rhythm. During the monitoring. No symptoms were arrhythmia were observed or reported. * Conclusion * 1. Normal sinus rhythm * 2. No arrhythmia * 3. No symptoms reported by the patient * INGRID is to have a 30 day mobile outpatient bowling floor desk clerk. * Event Monitor: * INGRID is here for the application of a 30 day event monitor in office., Diagnosis: syncope * Ordering Physician: Dr. Tammy Celis MD * Monitor number [id number] applied. * Holter monitor printed and placed on Dr. Tammy Celis MD desk to dictate. [facility] [employer] Phone: Summary Purpose Family History Unknown Family Member Name Dates Details Family history of diabetes m ellitus: Mother(V18.0, Z83.3) Status:Active Family history of myocardial infarction: Mother(V17.3, Z82.49) Status:Active Unknown Family Member Name Dates Details Family history of diabetes m ellitus: Mother(V18.0, Z83.3) Status:Active Family history of myocardial infarction: Mother(V17.3, Z82.49) Status:Active Unknown Family Member Name Dates Details Family history of diabetes m ellitus: Mother(V18.0, Z83.3) Status:Active Family history of myocardial infarction: Mother(V17.3, Z82.49) Status:Active Unknown Family Member Name Dates Details Family history of diabetes m ellitus: Mother(V18.0, Z83.3) Status:Active Family history of myocardial infarction: Mother(V17.3, Z82.49) Status:Active Unknown Family Member Name Dates Details Family history of diabetes m ellitus: Mother(V18.0, Z83.3) Status:Active Family history of myocardial infarction: Mother(V17.3, Z82.49) Status:Active Unknown Family Member Name Dates Details Family history of diabetes m ellitus: Mother(V18.0, Z83.3) Status:Active Family history of myocardial infarction: Mother(V17.3, Z82.49) Status:Active Unknown Family Member Name Dates Details Family history of diabetes m ellitus: Mother(V18.0, Z83.3) Status:Active Family history of myocardial infarction: Mother(V17.3, Z82.49) Status:Active Relationship Condition Age at Onset Recorded Date/T arleen brother Malignant neoplasm Unknown father Unknown Heart disease Unknown Not Specified Unknown Diabetes mellitus Unknown sister Heart disease Unknown Relationship Condition Age at Onset Recorded Date/T arleen brother Malignant neoplasm Unknown father Unknown Heart disease Unknown mother Unknown Diabetes mellitus Unknown sister Heart disease Unknown Advance Directives Advance Directive Response Recorded Date/ Time Advance Directives No May 30, 2017 3:46pm Chief Complaint INGRID LUNA is being seen for a 6 month follow-up of. Reason for Referral Reason *FU 06/25 Johny Salas. Diagnosis 1 Lumbar and sacral os teoarthritis (M47.817) Referral Organization [facility] jacquie Referring Provider First Name Diane Referring Provider Last Name Nahid Referring Provider Specialty Family [facility] Referred Organization Unknown Facility Referred Provider Specialty Rheumatology Referral Priority Routine General Notes Alicia Roy 04:48:23 PM >received today, attachments made, notes locked, referral faxed Clinical Notes p: [phone] f: [id number] Chief Complaint and Reason for Visit Chief Complaint Lower Extremity Issu e wellness Reason for Visit Decreased pedal puls es Elevated glucose Essential (primary) hypertension Fatigue Vitamin D deficiency Chief Complaint wellness spots on leg Reason for Visit Elevated glucose Essential (primary) hypertension Fatigue Medicare annual wellness visit, subsequent Vitamin D deficiency Hyponatremia Additional Source Comments Reason for Visit (unrecogniz ed section and content) Reason Comments Loss of Consciousness pt had episode of near-syncope at restaurant prior to arrival, sweaty, pale, felt like passing out, SBP in 60s for EMS, feels better now INFORMATION SOURCE (unrecogn ized section and content) DATE CREATED AUTHOR 03/13/2021 [facility] DATE CREATED AUTHOR AUTHOR'S ORGANIZ ATION 04/30/2021 [facility] DATE CREATED AUTHOR AUTHOR'S ORGANIZ ATION 11/07/2021 [employer] DATE CREATED AUTHOR AUTHOR'S ORGANIZ ATION 01/19/2022 [facility] DATE CREATED AUTHOR AUTHOR'S ORGANIZ ATION 09/13/2023 [facility] Care Teams (unrecognized sec tion and content) Team Status: Active Member Role Status Dates Diane Angelo MD Primary Care Provider Active Team Status: Inactive Member Role Status Dates Diane Angelo MD Primary Care Provide r, Attending Provider Active Start: August 06, 2023 End: August 06, 2023 Team Status: Inactive Member Role Status Dates Diane Angelo MD Primary Care Provide r, Attending Provider Active Start: October 15, 2023 End: October 15, 2023 Team Status: Inactive Member Role Status Dates Diane Angelo MD Primary Care Provide r, Attending Provider Active Start: December 26, 2023 End: December 26, 2023 Goals (unrecognized section and content) Goals may be documented in a n alternate section FOR RECORDS PERTAINING TO PATIENTS WHO ARE OR HAVE BEEN ENROLLED IN A CHEMICAL DEPENDENCY/SUBSTANCEABUSE PROGRAM, SOME INFORMATION MAY BE OMITTED. This clinical summary was aggregated from multiple sources. Caution should be exercised in using it in the provision of clinical care. This summary normalizes information from multiple sources, and as a consequence, information in this document may materially change the coding, format and clinical context of patient data. In addition, data may be omitted in some cases. CLINICAL DECISIONS SHOULD BE BASED ON THE PRIMARY CLINICAL RECORDS. [facility] [email or web address] provides no warranty or guarantee of the accuracy [phone] completeness of information in this [id number]
== END 2024-01-21 13:44 | disposition home or self-care (01) ==
LOC: MAMMO 13:43
PROVIDERS: PCP Family Medicine; Visit Provider Family Medicine
DX: Z12.31 Encounter for screening mammogram for malignant neoplasm of breast (principal); Z80.8 Family history of malignant neoplasm of other organs or systems; Z80.0 Family history of malignant neoplasm of digestive organs
CPT/HCPCS: 77063; 77067

== ENCOUNTER 2024-04-02 14:58 | Outpatient (OUT) | payer MEDICARE, SELFPAY ==
[2024-04-02 15:27] LABS: Estimated Average Glucose 111 mg/dL; Glycohemoglobin A1C 5.5 % (4.5-6.2)
[2024-04-02 16:02] LABS: Alanine Aminotransferase 19 U/L (14-59); Albumin Globulin Ratio 0.9; Albumin Level 3.6 g/dL (3.4-5.0); Alkaline Phosphatase 87 U/L (46-116); Anion Gap 10.1; Aspartate Amino Transferase 18 U/L (15-37); BUN Creatinine Ratio 24.3; Bilirubin Total 0.3 mg/dL (0.2-1.0); Calcium 9.2 mg/dL (8.5-10.1); Carbon Dioxide 28.5 mmol/L (21.0-32.0); Chloride 102 mmol/L (98-107); Estimated GFR (African America >60 (>=60 mL/min/1.73m^2); Estimated GFR (Non-African Ame >60 (>=60 mL/min/1.73m^2); Globulin 3.8 g/dL; Glucose 73 mg/dL (74-106); Magnesium 2.2 mg/dL (1.8-2.4); Potassium 3.6 mmol/L (3.5-5.1); Sodium 137 mmol/L (136-145); Total Protein 7.4 g/dL (6.4-8.2)
== END 2024-04-02 14:59 | disposition home or self-care (01) ==
LOC: LAB 14:59
PROVIDERS: PCP Family Medicine; Visit Provider Family Medicine
DX: E55.9 Vitamin D deficiency, unspecified (principal); E87.1 Hypo-osmolality and hyponatremia; R73.09 Other abnormal glucose
CPT/HCPCS: 36415; 80053; 82306; 83036; 83735